=== PATIENT | male | born 1965 | race Hispanic/Latino ===

== ENCOUNTER 2018-03-25 08:08 | Emergency (ER) | payer BC ==
[2018-03-25] MEDS ORDERED: NA CHLORIDE 0.9% 1,000 ML ONE (08:45)
[2018-03-25] MEDS ORDERED: PANTOPRAZOLE 40 MG INJ ONE ×2 (08:45→11:50)
[2018-03-25 08:48] LABS: Protime INR 1.13
[2018-03-25 08:55] LABS: Absolute Lymphocytes (CBC) 0.6 K/uL (0.7-4.9); Absolute Monocytes 0.4 K/uL (0.1-1.3); Absolute Neutrophil 2.8 K/uL (1.8-8.0); Basophils % 1.2 % (0-1.3); Eosinophils % 2.3 % (0-4.4); Hematocrit 19.5 % (39.6-49.0); Lymphocytes % 15.5 % (15.3-44.8); MCH 14.9 pg (27.0-35.0); MCV 57.1 fL (80-100); MPV 9.4 fL (7.6-11.3); Monocytes % 10.3 % (3.3-12.3); RBC Red Blood Cell Count 3.41 M/uL (4.33-5.43)
[2018-03-25 09:25] LABS: ALT/SGPT 33 U/L (12-78); AST/SGOT 24 U/L (15-37); Albumin 4.2 g/dL (3.4-5.0); Alkaline Phosphatase 103 U/L (45-117); BUN Blood Urea Nitrogen 13 mg/dL (7-18); Bicarbonate 23 mmol/L (21-32); Bilirubin Direct 0.3 mg/dL (0-0.2); Bilirubin Total 0.8 mg/dL (0.2-1.0); Ferritin 1.8 ng/mL (26-388); Glucose Level 109 mg/dL (74-106); Lipase 160 U/L (73-393); Magnesium 2.2 mg/dL (1.8-2.4); NT PRO-BNP 231 pg/mL (<125); Potassium 4.2 mmol/L (3.5-5.1); Protein, Total 7.4 g/dL (6.4-8.2); Sodium Level 138 mmol/L (136-145); Transferrin 384 mg/dL (200-360); Troponin (Emerg Dept Use Only) < 0.02 ng/mL (0.0-0.045)
[2018-03-25 09:55] LABS: Anisocytosis 3+; Blood Morphology Comment NOTED (NOT SEEN); Hypochromasia 3+; Platelet Estimate ADEQ; Poikilocytosis 1+; Polychromasia 1+
[2018-03-25 09:56] LABS: Basophilic Stippling 1+; Elliptocytes 1+
[2018-03-25] MEDS ORDERED: NA CHLORIDE 0.9% 250 ML ONE ×2 (10:24→13:33)
[2018-03-25] MEDS ORDERED: DIPHENHYDRAMINE 25 MG TAB/CAP ONE (10:32)
[2018-03-25] MEDS ORDERED: ACETAMINOPHEN 325 MG TABLET ONE (10:32)
[2018-03-25] MEDS ORDERED: THIAMINE 200 MG/2 ML INJ ONE (11:50)
[2018-03-25] MEDS ORDERED: FOLIC ACID 5 MG/ML VIAL ONE (11:51)
--- NOTE | 2018-03-25 11:58 | ER ---
Nurse's Notes [facility] Name: Rhett Bourgeois Age: 52 yrs Sex: Male : 1965 Arrival Date: 03/25/2018 Time: 08:10 Bed 18 Private MD: Oscar Butt A Diagnosis: Anemia, unspecified;Epistaxis-history of;Weakness;Gastrointestinal hemorrhage, unspecified;Alcohol abuse Presentation: 03/25 08:18 Presenting complaint: Patient states: Saw Dr. Butt yesterday for fatigue, had routine ss labs obtained and was called this morning and told to come to ER for "low blood levels". Pt reports a history of chronic nose bleeds. Transition of care: patient was not received from another setting of care. Onset of symptoms is unknown. Risk Assessment: Do you want to hurt yourself or someone else? Patient reports no desire to harm self or others. Initial Sepsis Screen: Does the patient meet any 2 criteria? No. Patient's initial sepsis screen is negative. Does the patient have a suspected source of infection? No. Patient's initial sepsis screen is negative. Care prior to arrival: None. 08:18 Method Of Arrival: Ambulatory ss 08:18 Acuity: HUANG 3 ss Historical: - Allergies: 08:20 No Known Allergies; ss - Home Meds: 08:20 unknown anti viral [Active]; ss - PMHx: 08:20 chronic nose bleeds; ss - PSHx: 08:20 None; ss - Immunization history:: Adult Immunizations unknown. - Social history:: Smoking status: Patient/guardian denies using tobacco. - Ebola Screening: : Patient denies exposure to infectious person Patient denies travel to an Ebola-affected area in the 21 days before illness onset. - Family history:: not pertinent. Screenin:27 Abuse screen: Denies threats or abuse. Nutritional screening: No deficits noted. la1 Tuberculosis screening: No symptoms or risk factors identified. Fall Risk None identified. Assessment: 08:26 General: Appears in no apparent distress. Behavior is calm, cooperative. Pain: Denies la1 pain. Neuro: Level of Consciousness is awake, alert, obeys commands, Oriented to person, place, time, situation. Cardiovascular: Capillary refill < 3 seconds Patient's skin is warm and dry. Respiratory: Airway is patent Respiratory effort is even, unlabored, Respiratory pattern is regular, symmetrical, Breath sounds are clear bilaterally. GI: No signs and/or symptoms were reported involving the gastrointestinal system. : No signs and/or symptoms were reported regarding the genitourinary system. Derm: Skin is pale. 10:05 Reassessment: Patient appears in no apparent distress at this time. No changes from la1 previously documented assessment. Patient and/or family updated on plan of care and expected duration. Pain level reassessed. Patient is alert, oriented x 3, equal unlabored respirations, skin warm/dry/pink. 10:25 Reassessment: Patient and/or family updated on plan of care and expected duration. Pain aj1 level reassessed. General: Appears in no apparent distress. comfortable. Pain: Denies pain. Neuro: Level of Consciousness is awake, alert, obeys commands, Oriented to person, place, time, situation. Cardiovascular: Heart tones S1 S2 present Patient's skin is warm and dry. Respiratory: Airway is patent Respiratory effort is even, unlabored, Respiratory pattern is regular, symmetrical, Breath sounds are clear bilaterally. Denies shortness of breath. GI: No signs and/or symptoms were reported involving the gastrointestinal system. : No signs and/or symptoms were reported regarding the genitourinary system. EENT: Reports chronic nose bleeds. Derm: Skin is pale. Musculoskeletal: No signs and/or symptoms reported regarding the musculoskeletal system. Circulation, motion, and sensation intact. 10:35 Reassessment: Blood transfusion initiated. See transfusion record. aj1 11:35 Reassessment: Patient appears in no apparent distress at this time. No changes from aj1 previously documented assessment. Patient and/or family updated on plan of care and expected duration. Pain level reassessed. Patient is alert, oriented x 3, equal unlabored respirations, skin warm/dry/pink. 11:35 Cardiovascular: Heart tones S1 S2 present. Respiratory: Breath sounds are clear aj1 bilaterally. 12:35 Reassessment: Patient and/or family updated on plan of care and expected duration. Pain aj1 level reassessed. General: Appears in no apparent distress. comfortable, Behavior is calm, cooperative, appropriate for age. Pain: Denies pain. Neuro: Level of Consciousness is awake, alert, obeys commands. Cardiovascular: Heart tones S1 S2 present Patient's skin is warm and dry. Respiratory: Airway is patent Respiratory effort is even, unlabored, Respiratory pattern is regular, symmetrical, Breath sounds are clear bilaterally. Denies shortness of breath. Derm: Skin is pale. Musculoskeletal: Circulation, motion, and sensation intact. 13:00 Reassessment: report called to KEMAR Bell. 13:34 Reassessment: Patient appears in no apparent distress at this time. No changes from aj1 previously documented assessment. Patient and/or family updated on plan of care and expected duration. Pain level reassessed. Patient is alert, oriented x 3, equal unlabored respirations, skin warm/dry/pink. Respiratory: Breath sounds are clear bilaterally. Denies shortness of breath. 13:40 Reassessment: Blood transfusion initiated with EMS at bedside, Vital signs were [facility] rechecked 5 minutes after starting transfusion, and then care was transferred to EMS. Vital Signs: 08:20 BP 139 / 76; Pulse 79; Resp 16; Temp 98.2(TE); Pulse Ox 100% on R/A; Weight 65.77 kg; Height 5 ft. 4 in. (162.56 cm); Pain 0/10; 10:05 BP 129 / 72; Pulse 64; Resp 16; Pulse Ox 100% on R/A; la1 11:05 BP 125 / 78; Pulse 66; Resp 20; Temp 97.5; Pulse Ox 100% ; aj1 12:05 BP 117 / 64; Pulse 60; Resp 22; Pulse Ox 100% on R/A; aj1 13:00 BP 118 / 60; Pulse 60; Resp 22; Pulse Ox 100% ; aj1 13:45 BP 135 / 68; Pulse 60; Resp 20; Pulse Ox 100% on R/A; aj1 08:20 Body Mass Index 24.89 (65.77 kg, 162.56 cm) ED Course: 08:10 Patient arrived in ED. sb2 08:10 Oscar Butt MD is Private Physician. sb2 08:19 Triage completed. ss 08:20 Arm band placed on right wrist. ss 08:23 Melchor Mane MD is Attending Physician. [facility] 08:26 Kenyon Ingram, KEMAR is Primary Nurse. la1 08:27 No provider procedures requiring assistance completed. Inserted saline lock: 20 gauge la1 in left antecubital area, using aseptic technique. Blood collected. 08:28 Bed in low position. Call light in reach. Side rails up X 1. Pulse ox on. NIBP on. la1 08:56 X-ray completed. Portable x-ray completed in exam room. kp1 08:57 XRAY Chest (1 view) In Process Unspecified. EDMS 11:34 initiated a transfer with Perla at the [facility]. eb 11:43 Urine collected: urinal,clear. 3 11:52 connected the hospitalist from [facility] with ED doc for patient transfer eb consultation/. 12:00 Inserted saline lock: 22 gauge in right forearm, using aseptic technique. aj1 13:56 Patient transferred, IV remains in place. aj1 Administered Medications: 08:47 Drug: NS 0.9% 1000 ml Route: IV; Rate: 125 ml/hr; Site: left antecubital; la1 08:47 Drug: ProTONIX 40 mg Route: IVP; Site: left antecubital; la1 08:59 Follow up: Response: No adverse reaction la1 10:30 Drug: Tylenol 650 mg {Note: per transfusion orders.} Route: PO; aj1 13:57 Follow up: Response: No adverse reaction aj1 10:30 Drug: Benadryl 25 mg {Note: per transfusion orders.} Route: PO; aj1 13:57 Follow up: Response: No adverse reaction aj1 12:15 Drug: ProTONIX 40 mg Route: IVP; Site: right forearm; aj1 13:57 Follow up: Response: No adverse reaction aj1 12:15 Drug: Thiamine 100 mg Route: IV; Rate: bolus; Site: right antecubital; aj1 13:58 Follow up: IV Status: Completed infusion aj1 12:15 Drug: foLIC Acid 1 mg Route: IVPB; Site: right antecubital; aj1 13:58 Follow up: IV Status: Completed infusion aj1 12:47 Drug: ProTONIX 8 mg/hr Route: IV; Rate: 25 ml/hr; Site: right forearm; aj1 13:58 Follow up: IV Status: Infusion continued upon transfer aj1 Outcome: 11:58 ER care complete, transfer ordered by MD. gutierrez 13:59 Transferred by ground EMS to [facility], Transfer form completed. aj1 13:59 Condition: unchanged 13:59 Discharge instructions given to patient, Instructed on the need for transfer, Demonstrated understanding of instructions. 13:59 Patient left the ED. aj1 Signatures: Dispatcher [employer] EDCecy Flores RN RN aj1 Melchor Mane MD MD cha Smirch, Shelby, RN RN ss Attema, Lee, RN RN Graciela Murphy 1 Ethel Brooks 3 Concepción Pinto2 Yaquelin Quiñones
--- NOTE | 2018-03-25 11:58 | EDPHYS ---
Physician Documentation [facility] Name: Rhett Bourgeois Age: 52 yrs Sex: Male : 1965 Arrival Date: 03/25/2018 Time: 08:10 Bed 18 Private MD: Oscar Butt, A ED Physician Melchor Mane HPI: 03/25 11:36 This 52 yrs old Male presents to ER via Ambulatory with complaints of Abnormal matt Lab Results. 11:36 This 52 yrs old Male presents to ER via Ambulatory with complaints of Abnormal matt Lab Results. 11:36 This 52 yrs old Male presents to ER via Ambulatory with complaints of Abnormal matt Lab Results. 11:48 This 52 yrs old Male presents to ER via Ambulatory with complaints of Abnormal matt Lab Results. Historical: - Allergies: 08:20 No Known Allergies; ss - Home Meds: 08:20 unknown anti viral [Active]; ss - PMHx: 08:20 chronic nose bleeds; ss - PSHx: 08:20 None; ss - Immunization history:: Adult Immunizations unknown. - Social history:: Smoking status: Patient/guardian denies using tobacco. - Ebola Screening: : Patient denies exposure to infectious person Patient denies travel to an Ebola-affected area in the 21 days before illness onset. - Family history:: not pertinent. ROS: 11:48 Abdomen/GI: Negative for abdominal pain, nausea, vomiting, diarrhea, and constipation, matt Back: Negative for injury and pain, MS/Extremity: Negative for injury and deformity. 11:48 Constitutional: Positive for fatigue, malaise. 11:48 Eyes: Positive for 11:48 Cardiovascular: Positive for chest pain, palpitations. 11:48 Respiratory: Positive for dyspnea on exertion, shortness of breath. 11:48 Abdomen/GI: Negative for abdominal pain, black/tarry stool, rectal pain, rectal bleeding. 11:48 Skin: Positive for pallor. Exam: 11:48 Constitutional: This is a well developed, well nourished patient who is awake, alert, matt and in no acute distress. Head/Face: Normocephalic, atraumatic. Eyes: Pupils equal round and reactive to light, extra-ocular motions intact. Lids and lashes normal. Conjunctiva and sclera are non-icteric and not injected. Cornea within normal limits. Periorbital areas with no swelling, redness, or edema. Neck: Trachea midline, no thyromegaly or masses palpated, and no cervical lymphadenopathy. Supple, full range of motion without nuchal rigidity, or vertebral point tenderness. No Meningismus. Chest/axilla: Normal chest wall appearance and motion. Nontender with no deformity. No lesions are appreciated. Cardiovascular: Regular rate and rhythm with a normal S1 and S2. No gallops, murmurs, or rubs. Normal PMI, no JVD. No pulse deficits. Respiratory: Lungs have equal breath sounds bilaterally, clear to auscultation and percussion. No rales, rhonchi or wheezes noted. No increased work of breathing, no retractions or nasal flaring. Male : Normal genitalia with no discharge or lesions. MS/ Extremity: Pulses equal, no cyanosis. Neurovascular intact. Full, normal range of motion. Neuro: Awake and alert, GCS 15, oriented to person, place, time, and situation. Cranial nerves II-XII grossly intact. Motor strength 5/5 in all extremities. Sensory grossly intact. Cerebellar exam normal. Normal gait. 11:48 Eyes: Conjunctiva: pale. 11:48 Cardiovascular: Rate: normal, Rhythm: regular, Pulses: Pulses are 4+ in bilateral radial, brachial, femoral, popliteal, posterior tibial and and dorsalis pedis arteries.. 11:48 Abdomen/GI: Inspection: abdomen appears normal, Bowel sounds: normal, Palpation: abdomen is soft and non-tender, Rectal exam: Stool: guaiac positive, hemorrhoid(s), are not appreciated, mass, is not appreciated, swelling, is not appreciated, tenderness, is not appreciated, Liver: no appreciated palpable abnormalities, Hernia: not appreciated. Vital Signs: 08:20 BP 139 / 76; Pulse 79; Resp 16; Temp 98.2(TE); Pulse Ox 100% on R/A; Weight 65.77 kg; ss Height 5 ft. 4 in. (162.56 cm); Pain 0/10; 10:05 BP 129 / 72; Pulse 64; Resp 16; Pulse Ox 100% on R/A; la1 11:05 BP 125 / 78; Pulse 66; Resp 20; Temp 97.5; Pulse Ox 100% ; aj1 12:05 BP 117 / 64; Pulse 60; Resp 22; Pulse Ox 100% on R/A; [facility] 13:00 BP 118 / 60; Pulse 60; Resp 22; Pulse Ox 100% ; aj1 13:45 BP 135 / 68; Pulse 60; Resp 20; Pulse Ox 100% on R/A; aj1 08:20 Body Mass Index 24.89 (65.77 kg, 162.56 cm) ss MDM: 08:23 Patient medically screened. [facility] 11:52 Data reviewed: vital signs, nurses notes, lab test result(s), EKG, radiologic studies, matt plain films. 03/25 08:26 Order name: Basic Metabolic Panel; Complete Time: 11:34 [facility] 03/25 08:26 Order name: CBC with Diff; Complete Time: 11:34 [facility] 03/25 08:26 Order name: LFT's; Complete Time: 11:34 [facility] 03/25 08:26 Order name: Magnesium; Complete Time: 11:34 [facility] 03/25 08:26 Order name: NT PRO-BNP; Complete Time: 11:34 [facility] 03/25 08:26 Order name: PT-INR; Complete Time: 11:34 [facility] 03/25 08:26 Order name: Troponin (emerg Dept Use Only); Complete Time: 11:34 [facility] 03/25 08:26 Order name: Lipase; Complete Time: 11:34 [facility] 03/25 08:26 Order name: Retic Count; Complete Time: 11:34 [facility] 03/25 08:26 Order name: Vitamin B12; Complete Time: 11:34 [facility] 03/25 08:26 Order name: Folic Acid,Serum (folate); Complete Time: 11:34 [facility] 03/25 08:26 Order name: TIBC; Complete Time: 11:34 [facility] 03/25 08:26 Order name: Ferritin; Complete Time: 11:34 [facility] 03/25 08:26 Order name: XRAY Chest (1 view) [facility] 03/25 08:26 Order name: EKG; Complete Time: 08:27 [facility] 03/25 08:26 Order name: Cardiac monitoring; Complete Time: 08:28 [facility] 03/25 08:26 Order name: Type And Screen [facility] 03/25 08:57 Order name: Manual Differential; Complete Time: 11:34 [facility] 03/25 09:26 Order name: ABO/RH no charge; Complete Time: 11:34 [facility] 03/25 09:46 Order name: Packed RBC Leukored -1 EDMS 03/25 11:45 Order name: Urine Dipstick--Ancillary (enter results) eb 03/25 08:26 Order name: EKG - Nurse/Tech; Complete Time: 08:48 [facility] 03/25 08:26 Order name: IV Saline Lock; Complete Time: 08:28 [facility] 03/25 08:26 Order name: Labs collected and sent; Complete Time: 08:28 [facility] 03/25 08:26 Order name: O2 Per Protocol; Complete Time: 08:28 [facility] 03/25 08:26 Order name: O2 Sat Monitoring; Complete Time: 08:28 [facility] 03/25 09:17 Order name: Transfuse; Complete Time: 11:01 [facility] 03/25 11:34 Order name: IV Saline Lock - Large Bore; Complete Time: 12:46 [facility] Administered Medications: 08:47 Drug: NS 0.9% 1000 ml Route: IV; Rate: 125 ml/hr; Site: left antecubital; la1 08:47 Drug: ProTONIX 40 mg Route: IVP; Site: left antecubital; la1 08:59 Follow up: Response: No adverse reaction la1 10:30 Drug: Tylenol 650 mg {Note: per transfusion orders.} Route: PO; aj1 13:57 Follow up: Response: No adverse reaction aj1 10:30 Drug: Benadryl 25 mg {Note: per transfusion orders.} Route: PO; aj1 13:57 Follow up: Response: No adverse reaction aj1 12:15 Drug: ProTONIX 40 mg Route: IVP; Site: right forearm; aj1 13:57 Follow up: Response: No adverse reaction aj1 12:15 Drug: Thiamine 100 mg Route: IV; Rate: bolus; Site: right antecubital; aj1 13:58 Follow up: IV Status: Completed infusion aj1 12:15 Drug: foLIC Acid 1 mg Route: IVPB; Site: right antecubital; aj1 13:58 Follow up: IV Status: Completed infusion aj1 12:47 Drug: ProTONIX 8 mg/hr Route: IV; Rate: 25 ml/hr; Site: right forearm; aj1 13:58 Follow up: IV Status: Infusion continued upon transfer aj1 Disposition: 03/25/18 11:58 Transfer ordered to [facility]. Diagnosis are Anemia, unspecified, Epistaxis - history of, Weakness, Gastrointestinal hemorrhage, unspecified, Alcohol abuse. - Reason for transfer: Higher level of care. - Accepting physician is to [facility]. - Condition is Fair. - Problem is new. - Symptoms have improved. Signatures: Dispatcher [employer] [facility] Cecy Chapin RN RN aj1 Melchor Mane MD MD cha Smirch, Shelby, RN RN ss Kenyon Ingram RN RN la1 Corrections: (The following items were deleted from the chart) 08:27 08:27 FERRITIN+C.LAB.BRZ ordered. [facility] 13:59 11:58 03/25/2018 11:58 Transfer ordered to [facility]. Diagnosis is aj1 Anemia, unspecified; Epistaxis - history of; Weakness; Gastrointestinal hemorrhage, unspecified; Alcohol abuse. Reason for transfer: Higher level of care. Accepting physician is to [facility]. Condition is Fair. Problem is new. Symptoms have improved. matt
[2018-03-25 12:12] LABS: Urine Blood NEGATIVE (NEG); Urine Glucose NEGATIVE (NEG); Urine Protein NEGATIVE (NEG); Urine pH 5.5 (5.0-7.0)
[2018-03-25] MEDS ORDERED: PANTOPRAZOLE INJ 80 MG in NA CHLORIDE 0.9% 250 ML IV SCH (12:30)
--- NOTE | 2018-03-26 12:23 | RAD REPORT ---
EXAM DESCRIPTION: RAD - Chest Single View - 03/25/2018 11:28 pm CLINICAL HISTORY: Cough The final report was delayed due to PACs and/or Fluency technical problems that existed at the time of the study or during expected/usual dictation time period. COMPARISON: None. TECHNIQUE: AP portable chest image was obtained 0851 hours . FINDINGS: Lungs are clear. Heart and vasculature are normal. No measurable pleural effusion and no p neumothorax. No gross bony abnormality seen. No acute aortic findings suspected. IMPRESSION: No acute cardiopulmonary process.
--- NOTE | 2018-03-27 08:19 | EKG ---
Test Date: 2018-03-25 Test Time: 08:33:35 Director Strategy: LA MEASUREMENT RESULTS: Intervals: Rate: 64 AR: 130 QRSD: 94 QT: 408 QTc: 420 [place]: P: 18 AR: 130 QRS: 21 T: 23 INTERPRETIVE STATEMENTS: Normal sinus rhythm Normal ECG No previous ECG available for comparison Electronically Signed On 03-27-18 08:18:40 CDT by Quentin Damon
== END 2018-03-25 13:59 | disposition short-term general hospital (02) ==
LOC: ER 08:08
DX: K92.2 Gastrointestinal hemorrhage, unspecified (principal); D50.0 Iron deficiency anemia secondary to blood loss (chronic); R04.0 Epistaxis; R53.1 Weakness; F10.10 Alcohol abuse, uncomplicated
CPT/HCPCS: 36415; 71045; 80048; 80076; 81003; 82607; 82728; 82746; 83540; 83690; 83735; 83880; 84466; 84484; 85025; 85044; 85610; 86850; 86900; 86901; 93005; 99285; C9113; J3411; J7030; P9016

== ENCOUNTER 2018-06-30 13:23 | Observation (INO) | payer BC ==
[2018-06-30] MEDS ORDERED: INFLUENZA VACCINE (for 3y+) 0.5 ML DOSE IMVAC ONE (15:00)
[2018-06-30] MEDS ORDERED: ONDANSETRON 4 MG/2 ML VIAL IV PRN (15:00)
[2018-06-30] MEDS ORDERED: ONDANSETRON 4 MG (ODT) TAB PO PRN (15:00)
[2018-06-30] MEDS ORDERED: PNEUMOCOCCAL VACCINE 0.5 ML IMVAC ONE (15:00)
[2018-06-30] MEDS ORDERED: POLYETHYL GLY 3350 17 GM/DOSE PO PRN (15:00)
[2018-06-30] MEDS ORDERED: ACETAMINOPHEN 325 MG TABLET PO PRN (15:00)
[2018-06-30] MEDS ORDERED: DIPHENHYDRAMINE 25 MG TAB/CAP PO PRN (15:00)
[2018-06-30] MEDS ORDERED: LOPERAMIDE HCL 2 MG CAPSULE PO PRN (15:00)
[2018-06-30] MEDS ORDERED: NACHLORIDE 0.45% 1,000 ML IV SCH (15:00)
[2018-06-30 15:30] LABS: Absolute Lymphocytes (CBC) 0.6 K/uL (0.7-4.9); Absolute Monocytes 0.4 K/uL (0.1-1.3); Absolute Neutrophil 2.1 K/uL (1.8-8.0); Eosinophils % 2.3 % (0-4.4); Monocytes % 12.3 % (3.3-12.3); RBC Red Blood Cell Count 3.43 M/uL (4.33-5.43)
[2018-06-30 15:36] LABS: ALT/SGPT 28 U/L (12-78); AST/SGOT 12 U/L (15-37); Albumin 3.9 g/dL (3.4-5.0); Alkaline Phosphatase 83 U/L (45-117); BUN Blood Urea Nitrogen 13 mg/dL (7-18); Bicarbonate 27 mmol/L (21-32); Bilirubin Direct 0.2 mg/dL (0-0.2); Bilirubin Total 0.5 mg/dL (0.2-1.0); Ferritin 1.2 ng/mL (26-388); Glucose Level 111 mg/dL (74-106); Protein, Total 7.1 g/dL (6.4-8.2); Protime INR 1.11; Sodium Level 139 mmol/L (136-145)
[2018-06-30 16:26] LABS: Urine White Blood Cell Casts OK
[2018-06-30 16:27] LABS: Anisocytosis 3+; Blood Morphology Comment NOTED (NOT SEEN); Elliptocytes 3+; Hypochromasia 2+; Platelet Estimate ADEQ; Polychromasia 1+
--- NOTE | 2018-06-30 18:52 | RAD REPORT ---
EXAM DESCRIPTION: Sheldon Dotson And Moreno (2 Views)06/30/2018 6:35 pm CLINICAL HISTORY: Breast mass/preop exam COMPARISON: March 2018 FINDINGS: The lungs appear clear of acute infiltrate. The heart is normal size IMPRESSION: No acute abnormalities displayed
[2018-06-30] MEDS ORDERED: NA CHLORIDE 0.9% 250 ML ONE (19:55)
--- NOTE | 2018-07-01 08:30 | EKG ---
Test Date: 2018-06-30 Test Time: 15:04:43 Regional Truck Driver: GILMA MEASUREMENT RESULTS: Intervals: Rate: 61 WV: 146 QRSD: 96 QT: 426 QTc: 428 [place]: P: 47 WV: 146 QRS: 51 T: 43 INTERPRETIVE STATEMENTS: Sinus rhythm with marked sinus arrhythmia Otherwise normal ECG Compared to ECG 03/25/2018 08:33:35 No significant changes Electronically Signed On 07-01-18 08:30:00 ENGRAVER RUBBER by Quentin Damon
--- NOTE | 2018-07-01 10:00 | P.DS ---
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 HE HAS THEM ON TONGUE ALSO IN ADDITION TO NOSE AND GI TRACT. I WILL CHECK HIS HG EVERY MONTH OR SO AND WILL HAVE TO TRANSFUSE. THERE IS SOME RESEARCH GOING ON IN [place] FOR EPISTAXIS FOR THIS PARTICULAR ISSUE AND I WILL REFER HIM THERE IF I CAN. Vital Signs/Physical Exam: Temp Pulse Resp BP Pulse Ox 96.9 F 56 16 105/56 L 100 07/01/18 04:00 07/01/18 04:00 07/01/18 04:00 07/01/18 04:00 07/01/18 04:00 Laboratory Data at Discharge: WBC 3.2 K/uL (4.3-10.9) L 06/30/18 14:55 Hgb 6.4 g/dL (13.6-17.9) L* 06/30/18 14:55 Hct 21.0 % (39.6-49.0) L 06/30/18 14:55 Plt Count 270 K/uL (152-406) 06/30/18 14:55 PT 13.1 SECONDS (9.5-12.5) H 06/30/18 14:55 INR 1.11 06/30/18 14:55 APTT 33.5 SECONDS (24.3-36.9) 06/30/18 14:55 Sodium 139 mmol/L (136-145) 06/30/18 14:55 Potassium 4.0 mmol/L (3.5-5.1) 06/30/18 14:55 BUN 13 mg/dL (7-18) 06/30/18 14:55 Creatinine 0.71 mg/dL (0.55-1.3) 06/30/18 14:55 Glucose 111 mg/dL (74-106) H 06/30/18 14:55 Total Bilirubin 0.5 mg/dL (0.2-1.0) 06/30/18 14:55 AST 12 U/L (15-37) L 06/30/18 14:55 ALT 28 U/L (12-78) 06/30/18 14:55 Alkaline Phosphatase 83 U/L (45-117) 06/30/18 14:55 Home Medications: NK [No Home Meds] 06/30/18 Diet: Regular
[2018-07-01 11:41] LABS: Absolute Lymphocytes (CBC) 0.8 K/uL (0.7-4.9); Absolute Monocytes 0.5 K/uL (0.1-1.3); Absolute Neutrophil 2.8 K/uL (1.8-8.0); Basophils % 0.9 % (0-1.3); Eosinophils % 2.5 % (0-4.4); Lymphocytes % 19.5 % (15.3-44.8); Monocytes % 12.5 % (3.3-12.3)
[2018-07-01 11:42] LABS: BUN Blood Urea Nitrogen 10 mg/dL (7-18); Bicarbonate 26 mmol/L (21-32); Glucose Level 93 mg/dL (74-106); Magnesium 2.3 mg/dL (1.8-2.4); Potassium 4.2 mmol/L (3.5-5.1); Sodium Level 141 mmol/L (136-145)
[2018-07-01 13:01] LABS: MPV 9.2 fL (7.6-11.3)
[2018-07-01 13:02] LABS: Platelet Estimate ADEQ; Urine White Blood Cell Casts OK
[2018-07-01 13:03] LABS: Anisocytosis 3+; Blood Morphology Comment NOTED (NOT SEEN); Hypochromasia 1+; Ovalocytes 2+; Polychromasia 1+; Teardrop Cell 1+
== END 2018-07-01 12:40 | disposition home or self-care (01) ==
LOC: 2ND 13:53
PROVIDERS: ADMIT Internal Medicine; ATTEND Internal Medicine
PROC: 30233N1 Transfusion of Nonautologous Red Blood Cells into Peripheral Vein, Percutaneous Approach (ICD-10-PCS; principal; 2018-06-30)
DX: D64.9 Anemia, unspecified (principal); I78.0 Hereditary hemorrhagic telangiectasia
CPT/HCPCS: 36415; 36430; 71046; 80048; 80076; 82728; 83735; 85025; 85610; 85730; 86850; 86900; 86901; 87040; 93005; G0378; P9016

== ENCOUNTER 2018-08-18 09:29 | Observation (INO) | payer BC ==
[2018-08-18 10:54] LABS: Absolute Lymphocytes (CBC) 0.4 K/uL (0.7-4.9); Absolute Monocytes 0.4 K/uL (0.1-1.3); Absolute Neutrophil 3.2 K/uL (1.8-8.0); Basophils % 0.5 % (0-1.3); Eosinophils % 0.4 % (0-4.4); Hematocrit 20.8 % (39.6-49.0); Lymphocytes % 10.1 % (15.3-44.8); MPV 8.7 fL (7.6-11.3); Monocytes % 9.8 % (3.3-12.3); RBC Red Blood Cell Count 3.65 M/uL (4.33-5.43)
[2018-08-18] MEDS ORDERED: ONDANSETRON 4 MG (ODT) TAB PO PRN (11:00)
[2018-08-18] MEDS ORDERED: NA CHLORIDE 0.9% 250 ML IV SCH (11:00)
[2018-08-18] MEDS ORDERED: DIPHENHYDRAMINE 25 MG TAB/CAP PO PRN (11:00)
[2018-08-18] MEDS ORDERED: NACHLORIDE 0.45% 1,000 ML IV SCH (11:00)
[2018-08-18] MEDS ORDERED: LOPERAMIDE HCL 2 MG CAPSULE PO PRN (11:00)
[2018-08-18] MEDS ORDERED: ACETAMINOPHEN 325 MG TABLET PO PRN (11:00)
[2018-08-18] MEDS ORDERED: ONDANSETRON 4 MG/2 ML VIAL IV PRN (11:00)
[2018-08-18] MEDS ORDERED: POLYETHYL GLY 3350 17 GM/DOSE PO PRN (11:00)
[2018-08-18 11:01] LABS: Protime INR 1.05
[2018-08-18 11:12] LABS: ALT/SGPT 25 U/L (12-78); AST/SGOT 12 U/L (15-37); Albumin 4.3 g/dL (3.4-5.0); Alkaline Phosphatase 68 U/L (45-117); BUN Blood Urea Nitrogen 12 mg/dL (7-18); Bicarbonate 26 mmol/L (21-32); Bilirubin Direct 0.3 mg/dL (0-0.2); Bilirubin Total 0.9 mg/dL (0.2-1.0); Glucose Level 105 mg/dL (74-106); Magnesium 2.2 mg/dL (1.8-2.4); Potassium 4.3 mmol/L (3.5-5.1); Protein, Total 7.4 g/dL (6.4-8.2); Sodium Level 140 mmol/L (136-145)
[2018-08-18 11:14] VITALS: BMI 27.4
[2018-08-18 11:47] LABS: Platelet Estimate ADEQ; Urine White Blood Cell Casts DIFF
[2018-08-18 11:48] LABS: Anisocytosis 3+; Blood Morphology Comment NOTED (NOT SEEN); Hypochromasia 3+; Ovalocytes 3+; Platelets, Giant FEW; Polychromasia 2+; Teardrop Cell 3+
[2018-08-18] MEDS ORDERED: NA CHLORIDE 0.9% 500 ML ONE (13:24)
[2018-08-18] MEDS ORDERED: NA CHLORIDE 0.9% 100 ML ONE (17:05)
[2018-08-18 17:33] LABS: Urine Appearance CLEAR; Urine Bilirubin NEGATIVE (NEG); Urine Blood NEGATIVE (NEG); Urine Color YELLOW; Urine Glucose NEGATIVE (NEG); Urine Protein NEGATIVE (NEG); Urine Specific Gravity 1.015 (1.005-1.030); Urine pH 7.5 (5.0-7.0)
[2018-08-18 17:38] LABS: Urine Microscopic Reflex NO UMIC
[2018-08-18 17:58] VITALS: O2SAT 100
[2018-08-18] MEDS ORDERED: NA CHLORIDE 0.9% 250 ML ONE (22:59)
[2018-08-19] MEDS ORDERED: NA CHLORIDE 0.9% 100 ML ONE (03:16)
[2018-08-19 06:29] LABS: BUN Blood Urea Nitrogen 13 mg/dL (7-18); Bicarbonate 25 mmol/L (21-32); Glucose Level 101 mg/dL (74-106); Magnesium 2.3 mg/dL (1.8-2.4); Potassium 4.2 mmol/L (3.5-5.1); Sodium Level 142 mmol/L (136-145)
[2018-08-19 07:29] LABS: Absolute Lymphocytes (CBC) 0.8 K/uL (0.7-4.9); Absolute Monocytes 0.5 K/uL (0.1-1.3); Absolute Neutrophil 3.2 K/uL (1.8-8.0); Basophils % 0.9 % (0-1.3); Eosinophils % 2.2 % (0-4.4); Hematocrit 30.9 % (39.6-49.0); Lymphocytes % 18.2 % (15.3-44.8); MPV 9.2 fL (7.6-11.3); Monocytes % 10.4 % (3.3-12.3); RBC Red Blood Cell Count 4.66 M/uL (4.33-5.43)
[2018-08-19 08:27] LABS: Hematocrit 31.5 % (39.6-49.0)
[2018-08-19 10:57] VITALS: BP 127/64; TEMP 97.1
--- NOTE | 2018-08-19 11:35 | P.DS ---
Admission Date: 08/18/18 Discharge Date: 08/19/18 Disposition: ROUTINE DISCHARGE Discharge Condition: [facility] Hospital Course: STABLE FOR DC HG IS 9.8 HE WILL CALL RESEARCH DEPT IN [place] LIKE I ADVISED. Vital Signs/Physical Exam: Temp Pulse Resp BP Pulse Ox 97.1 F 62 18 127/64 100 08/19/18 08:00 08/19/18 08:00 08/19/18 08:00 08/19/18 08:00 08/19/18 08:00 Laboratory Data at Discharge: WBC 4.6 K/uL (4.3-10.9) 08/19/18 05:51 Hgb 9.8 g/dL (13.6-17.9) L 08/19/18 07:40 Hct 31.5 % (39.6-49.0) L 08/19/18 07:40 Plt Count 162 K/uL (152-406) D 08/19/18 05:51 PT 12.4 SECONDS (9.5-12.5) 08/18/18 10:45 INR 1.05 08/18/18 10:45 APTT 32.9 SECONDS (24.3-36.9) 08/18/18 10:45 Sodium 142 mmol/L (136-145) 08/19/18 05:51 Potassium 4.2 mmol/L (3.5-5.1) 08/19/18 05:51 BUN 13 mg/dL (7-18) 08/19/18 05:51 Creatinine 0.75 mg/dL (0.55-1.3) 08/19/18 05:51 Glucose 101 mg/dL (74-106) 08/19/18 05:51 Magnesium 2.3 mg/dL (1.8-2.4) 08/19/18 05:51 Total Bilirubin 0.9 mg/dL (0.2-1.0) 08/18/18 10:42 AST 12 U/L (15-37) L 08/18/18 10:42 ALT 25 U/L (12-78) 08/18/18 10:42 Alkaline Phosphatase 68 U/L (45-117) 08/18/18 10:42 Home Medications: NK [No Home Meds] 06/30/18
[2018-08-19 13:01] LABS: Anisocytosis 3+; Blood Morphology Comment NOTED (NOT SEEN); Elliptocytes 1+; Hypochromasia 2+; Platelet Estimate ADEQ; Poikilocytosis 1+; Polychromasia 2+
== END 2018-08-19 12:08 | disposition home or self-care (01) ==
LOC: 4TH 09:43
PROVIDERS: ADMIT Internal Medicine; ATTEND Internal Medicine
PROC: 30233N1 Transfusion of Nonautologous Red Blood Cells into Peripheral Vein, Percutaneous Approach (ICD-10-PCS; principal; 2018-08-18)
DX: D64.9 Anemia, unspecified (principal); I78.0 Hereditary hemorrhagic telangiectasia
CPT/HCPCS: 36415; 80048; 80076; 81003; 83735; 85014; 85018; 85025; 85610; 85730; 86850; 86900; 86901; G0378; P9016

== ENCOUNTER 2018-10-11 20:56 | Observation (INO) | payer BC ==
[2018-10-11 21:52] VITALS: BMI 25.8
[2018-10-11 22:26] LABS: Absolute Lymphocytes (CBC) 0.9 K/uL (0.7-4.9); Absolute Monocytes 0.4 K/uL (0.1-1.3); Absolute Neutrophil 1.8 K/uL (1.8-8.0); Basophils % 1.1 % (0-1.3); Eosinophils % 1.7 % (0-4.4); Hematocrit 22.5 % (39.6-49.0); Lymphocytes % 28.1 % (15.3-44.8); MPV 8.7 fL (7.6-11.3); Monocytes % 12.5 % (3.3-12.3); RBC Red Blood Cell Count 3.71 M/uL (4.33-5.43)
[2018-10-11 22:41] LABS: BUN Blood Urea Nitrogen 15 mg/dL (7-18); Bicarbonate 27 mmol/L (21-32); Glucose Level 89 mg/dL (74-106); Potassium 3.8 mmol/L (3.5-5.1); Sodium Level 141 mmol/L (136-145)
[2018-10-11] MEDS ORDERED: DIPHENHYDRAMINE 25 MG TAB/CAP PO PRN (22:45)
[2018-10-11] MEDS ORDERED: POLYETHYL GLY 3350 17 GM/DOSE PO PRN (22:45)
[2018-10-11] MEDS ORDERED: LOPERAMIDE HCL 2 MG CAPSULE PO PRN (22:45)
[2018-10-11] MEDS ORDERED: ACETAMINOPHEN 325 MG TABLET PO PRN (22:45)
[2018-10-11] MEDS ORDERED: ONDANSETRON 4 MG/2 ML VIAL IV PRN (22:45)
[2018-10-11] MEDS ORDERED: ONDANSETRON 4 MG (ODT) TAB PO PRN (22:57)
[2018-10-11] MEDS ORDERED: NACHLORIDE 0.45% 1,000 ML IV SCH (23:00)
[2018-10-11 23:23] LABS: Blood Morphology Comment NOTED (NOT SEEN); Platelet Estimate ADEQ; Urine White Blood Cell Casts OK
[2018-10-11 23:24] LABS: Anisocytosis 3+; Hypochromasia 2+; Teardrop Cell 1+
[2018-10-12] MEDS ORDERED: NA CHLORIDE 0.9% 250 ML ONE ×2 (00:24→09:38)
--- NOTE | 2018-10-12 08:18 | EKG ---
Test Date: 2018-10-11 Test Time: 22:27:14 Radiation Engineer: BRIGITTE MEASUREMENT RESULTS: Intervals: Rate: 55 DE: 164 QRSD: 96 QT: 432 QTc: 413 [place]: P: 42 DE: 164 QRS: 57 T: 50 INTERPRETIVE STATEMENTS: Sinus bradycardia Otherwise normal ECG Compared to ECG 06/30/2018 15:04:43 Sinus rhythm no longer present Sinus arrhythmia no longer present Electronically Signed On 10-12-18 07:50:32 CDT by Quentin Damon
--- NOTE | 2018-10-12 08:29 | RAD REPORT ---
EXAM DESCRIPTION: RAD - Chest Pa And Lat (2 Views) - 10/11/2018 9:52 pm CLINICAL HISTORY: Severe Anemia, HHT Chest pain. COMPARISON: Chest Pa And Lat (2 Views) dated 06/30/2018; Chest Single View dated 03/25/2018 FINDINGS: The lungs are clear. The heart is normal in size. No displaced fractures. IMPRESSION: No acute or concerning finding suspected.
--- NOTE | 2018-10-12 10:22 | RAD REPORT ---
EXAM DESCRIPTION: US - Abdomen Exam Complete - 10/12/2018 9:18 am CLINICAL HISTORY: Abdominal pain. Severe Anemia, HHT COMPARISON: No comparisons FINDINGS: The liver appears prominent in size and mildly heterogenous in echotexture. No focal liver lesions or intrahepatic biliary dilatation is seen. The gallbladder demonstrates no gallstones, pericholecystic fluid or gallbladder wall thickening. Co mmon bile duct is normal in caliber measuring 5 millimeters. Both kidneys are normal in size, shape and echotexture. No hydronephrosis, focal lesion of concern or perinephric fluid. The spleen is enlarged measuring 14 cm. The pancreas and aorta are obscured by bowel gas. The visualized aspects of the IVC are grossly normal. IMPRESSION: Hepatosplenomegaly is identified.
[2018-10-12 15:36] VITALS: O2SAT 98
[2018-10-12 16:39] LABS: BUN Blood Urea Nitrogen 11 mg/dL (7-18); Bicarbonate 25 mmol/L (21-32); Glucose Level 86 mg/dL (74-106); Magnesium 2.4 mg/dL (1.8-2.4); Sodium Level 141 mmol/L (136-145)
[2018-10-12 16:44] LABS: Absolute Lymphocytes (CBC) 0.9 K/uL (0.7-4.9); Absolute Monocytes 0.5 K/uL (0.1-1.3); Basophils % 0.8 % (0-1.3); Eosinophils % 1.8 % (0-4.4); Hematocrit 32.9 % (39.6-49.0); Lymphocytes % 19.4 % (15.3-44.8); Monocytes % 11.1 % (3.3-12.3); RBC Red Blood Cell Count 4.95 M/uL (4.33-5.43)
--- NOTE | 2018-10-12 17:39 | P.DS ---
Admission Date: 10/11/18 Discharge Date: 10/12/18 Disposition: ROUTINE DISCHARGE Discharge Condition: FAIR Hospital Course: MR. BARKER HAS OSW SYNDROME AND BLEEDS OFF AND ON. HE HAS HG DOWN TO 6.4. AFTER 3 UNITS HE IS UP TO 9.9 GM. HE WILL CALL [facility] [place]. HE HAS THE NUMBER. Vital Signs/Physical Exam: Temp Pulse Resp BP Pulse Ox 97.2 F 56 18 127/69 100 10/12/18 12:00 10/12/18 12:00 10/12/18 12:00 10/12/18 12:00 10/12/18 12:00 Laboratory Data at Discharge: WBC 4.5 K/uL (4.3-10.9) D 10/12/18 16:10 Hgb 9.9 g/dL (13.6-17.9) L D 10/12/18 16:10 Hct 32.9 % (39.6-49.0) L D 10/12/18 16:10 Plt Count [employer] 10/12/18 16:10 Sodium 141 mmol/L (136-145) 10/12/18 16:10 Potassium 4.0 mmol/L (3.5-5.1) 10/12/18 16:10 BUN 11 mg/dL (7-18) 10/12/18 16:10 Creatinine 0.70 mg/dL (0.55-1.3) 10/12/18 16:10 Glucose 86 mg/dL (74-106) 10/12/18 16:10 Magnesium 2.4 mg/dL (1.8-2.4) 10/12/18 16:10 Home Medications: NK [No Home Meds] 10/11/18
[2018-10-12 18:14] VITALS: BP 116/61; TEMP 97.8
== END 2018-10-12 18:18 | disposition home or self-care (01) ==
LOC: 2ND 20:56
PROVIDERS: ADMIT Internal Medicine; ATTEND Internal Medicine
PROC: 30233N1 Transfusion of Nonautologous Red Blood Cells into Peripheral Vein, Percutaneous Approach (ICD-10-PCS; principal; 2018-10-11)
DX: D64.9 Anemia, unspecified (principal); I78.0 Hereditary hemorrhagic telangiectasia
CPT/HCPCS: 36415; 36430; 71046; 76700; 80048; 83735; 85025; 86850; 86900; 86901; 93005; G0378; P9016

== ENCOUNTER 2018-12-07 17:57 | Observation (INO) | payer BC ==
[2018-12-07 18:20] VITALS: BMI 26.6
[2018-12-07 18:55] LABS: Absolute Lymphocytes (CBC) 0.7 K/uL (0.7-4.9); Absolute Monocytes 0.4 K/uL (0.1-1.3); Absolute Neutrophil 2.5 K/uL (1.8-8.0); Eosinophils % 1.9 % (0-4.4); Lymphocytes % 18.8 % (15.3-44.8); MPV 9.7 fL (7.6-11.3); Monocytes % 11.1 % (3.3-12.3)
[2018-12-07 19:03] LABS: Hematocrit 16.3 % (39.6-49.0)
[2018-12-07 19:12] LABS: BUN Blood Urea Nitrogen 11 mg/dL (7-18); Bicarbonate 24 mmol/L (21-32); Glucose Level 100 mg/dL (74-106); Potassium 3.8 mmol/L (3.5-5.1); Sodium Level 138 mmol/L (136-145)
[2018-12-07] MEDS ORDERED: ONDANSETRON 4 MG (ODT) TAB PO PRN (19:53)
[2018-12-07] MEDS ORDERED: DIPHENHYDRAMINE 25 MG TAB/CAP PO PRN (19:53)
[2018-12-07] MEDS ORDERED: POLYETHYL GLY 3350 17 GM/DOSE PO PRN (19:53)
[2018-12-07] MEDS ORDERED: ONDANSETRON HCL 40 MG/20 ML VIAL IV PRN (19:53)
[2018-12-07] MEDS ORDERED: ACETAMINOPHEN 325 MG TABLET PO PRN (19:53)
[2018-12-07] MEDS ORDERED: LOPERAMIDE HCL 2 MG CAPSULE PO PRN (19:53)
[2018-12-07] MEDS ORDERED: NACHLORIDE 0.45% 1,000 ML IV SCH (20:00)
[2018-12-07] MEDS ORDERED: NA CHLORIDE 0.9% 250 ML ONE (22:15)
[2018-12-07 22:21] LABS: Urine Appearance CLEAR; Urine Bilirubin NEGATIVE (NEG); Urine Blood NEGATIVE (NEG); Urine Color YELLOW; Urine Glucose NEGATIVE (NEG); Urine Protein NEGATIVE (NEG)
[2018-12-07 22:24] LABS: Urine Microscopic Reflex NO UMIC
[2018-12-08] MEDS ORDERED: NA CHLORIDE 0.9% 250 ML ONE ×3 (01:19→09:56)
[2018-12-08 05:35] LABS: Absolute Lymphocytes (CBC) 0.6 K/uL (0.7-4.9); Absolute Monocytes 0.3 K/uL (0.1-1.3); Absolute Neutrophil 2.3 K/uL (1.8-8.0); Basophils % 1.3 % (0-1.3); Eosinophils % 2.4 % (0-4.4); Hematocrit 22.9 % (39.6-49.0); MPV 9.2 fL (7.6-11.3); Monocytes % 10.2 % (3.3-12.3); RBC Red Blood Cell Count 3.64 M/uL (4.33-5.43)
[2018-12-08 05:48] LABS: BUN Blood Urea Nitrogen 9 mg/dL (7-18); Bicarbonate 25 mmol/L (21-32); Glucose Level 95 mg/dL (74-106); Magnesium 2.3 mg/dL (1.8-2.4); Potassium 4.3 mmol/L (3.5-5.1); Sodium Level 142 mmol/L (136-145)
[2018-12-08 06:40] LABS: Anisocytosis 3+; Blood Morphology Comment NOTED (NOT SEEN); Hypochromasia 2+; Platelet Estimate ADEQ; Poikilocytosis 2+; Urine White Blood Cell Casts OK
--- NOTE | 2018-12-08 15:11 | P.DS ---
Admission Date: 12/07/18 Discharge Date: 12/08/18 Disposition: ROUTINE DISCHARGE Discharge Condition: FAIR Hospital Course: LESLEY IS DOING GOOD. HE STILL BLEEDS DAILY FROM NOSE. HE HAS HHT SYNDROME. LIKE ADVISED HE IS IN CONTACT WITH GROUP IN [place] FOR PROTOCOLS AND TREATMENT AND WILL BE GOING THERE SOON. Vital Signs/Physical Exam: Temp Pulse Resp BP Pulse Ox 97.4 F 54 16 107/57 L 100 12/08/18 12:00 12/08/18 12:00 12/08/18 12:00 12/08/18 12:00 12/08/18 12:00 Laboratory Data at Discharge: WBC 3.3 K/uL (4.3-10.9) L 12/08/18 05:07 Hgb 7.1 g/dL (13.6-17.9) L* D 12/08/18 05:07 Hct 22.9 % (39.6-49.0) L D 12/08/18 05:07 Plt Count 175 K/uL (152-406) 12/08/18 05:07 Sodium 142 mmol/L (136-145) 12/08/18 05:07 Potassium 4.3 mmol/L (3.5-5.1) 12/08/18 05:07 BUN 9 mg/dL (7-18) 12/08/18 05:07 Creatinine 0.62 mg/dL (0.55-1.3) 12/08/18 05:07 Glucose 95 mg/dL (74-106) 12/08/18 05:07 Magnesium 2.3 mg/dL (1.8-2.4) 12/08/18 05:07 Home Medications: NK [No Home Meds] 10/11/18 Diet: Regular
[2018-12-08 15:48] LABS: Hematocrit 28.2 % (39.6-49.0)
[2018-12-08 16:17] VITALS: O2SAT 99
[2018-12-08 16:52] VITALS: BP 121/59; TEMP 98.4
== END 2018-12-08 17:49 | disposition home or self-care (01) ==
LOC: 2ND 17:57
PROVIDERS: ADMIT Internal Medicine; ATTEND Internal Medicine
DX: I78.0 Hereditary hemorrhagic telangiectasia (principal); D64.9 Anemia, unspecified
CPT/HCPCS: 36415; 36430; 80048; 81003; 83735; 85014; 85018; 85025; 86850; 86900; 86901; G0378; P9016

== ENCOUNTER 2019-01-18 18:49 | Observation (INO) | payer BC ==
[2019-01-18 19:25] VITALS: BMI 26.4
[2019-01-18] MEDS ORDERED: POLYETHYL GLY 3350 17 GM/DOSE PO PRN (19:43)
[2019-01-18] MEDS ORDERED: LOPERAMIDE HCL 2 MG CAPSULE PO PRN (19:43)
[2019-01-18] MEDS ORDERED: DIPHENHYDRAMINE 25 MG TAB/CAP PO PRN (19:43)
[2019-01-18] MEDS ORDERED: ACETAMINOPHEN 325 MG TABLET PO PRN (19:43)
[2019-01-18] MEDS ORDERED: ONDANSETRON 4 MG/2 ML VIAL IV PRN (19:48)
[2019-01-18] MEDS ORDERED: ONDANSETRON HCL 40 MG/20 ML VIAL IV PRN (19:48)
[2019-01-18] MEDS ORDERED: NACHLORIDE 0.45% 1,000 ML IV SCH (20:00)
[2019-01-18 20:07] VITALS: O2SAT 100
[2019-01-18] MEDS ORDERED: NA CHLORIDE 0.9% 500 ML ONE (21:54)
[2019-01-19] MEDS ORDERED: NA CHLORIDE 0.9% 250 ML ONE ×2 (08:08→13:20)
--- NOTE | 2019-01-19 14:30 | P.SSS ---
Patient History Date of Service: 01/19/19 Reason for admission: FATIGUE, DYSPNEA History of Present Illness: MR. BARKER IS A PATIENT WITH HHT AND BLEEDS EVERY DAY THROUGH NOSE. HE HAS BEEN DYSPNEIC AND FATIGUED LATELY. HE HAD HG DONE YESTERDAY THAT WAS DOWN TO 5.8 GM. HE HAS BEEN GIVEN FOUR UNITS OF BLOOD AND ONCE HG IS HIGH ENOUGH HE WILL BE SENT HOME. HE WAS TO GO TO [facility] FOR NEW THERAPY FOR HHT BUT HAD TO CANCEL APT TWICE. HE WILL CALL THEM TODAY. Allergies No Known Allergies Allergy (Verified 10/11/18 21:43) Home Medications: NK [No Home Meds] 10/11/18 - Past Medical/Surgical History Has patient received pneumonia vaccine in the past: No Diabetic: No -: Osler-Nunez Rendu Syndrome (hht) -: egd x2 -: colonoscopy - Family History Father -: Heart disease, Cancer Mother -: Hypertension - Social History Smoking Status: Never smoker Alcohol use: Yes CD- Drugs: No Caffeine use: Yes Place of Residence: Home Review of Systems 10-point ROS is otherwise unremarkable General: Weakness, Malaise Respiratory: Shortness of Breath Physical Examination - Vital Signs Temperature: 97.5 F Blood Pressure: 123/73 Pulse: 61 Respirations: 17 Pulse Ox (%): 100 - Physical Exam General: Mild distress HEENT: Atraumatic, PERRLA, Mucous membr. moist/pink, EOMI, Sclerae nonicteric Neck: Supple, 2+ carotid pulse no bruit, No LAD, Without JVD or thyroid abnormality Respiratory: Clear to auscultation bilaterally, Normal air movement Cardiovascular: Regular rate/rhythm, Normal S1 S2 Gastrointestinal: Normal bowel sounds, No tenderness Musculoskeletal: No tenderness Integumentary: No rashes Neurological: Normal gait, Normal speech, Normal strength at 5/5 x4 extr, Normal tone, Normal affect Lymphatics: No axilla or inguinal lymphadenopathy - Diagnosis (Problem(s)) (1) HHT (hereditary hemorrhagic telangiectasia) Current Visit: Yes Status: Acute Plan: HE HAS MULTIPLE OPEN SURFACED BLOOD VESSELS IN HIS MM. HE HAS PLAN TO GO TO [facility] FOR INVESTIGATIONAL THERAPY FOR HHT OF NOSE TO PREVENT EPISTAXIS. I HAD HIM APPLY TO THIS FACILITY. (2) Severe anemia Onset Date: 08/21/18 Current Visit: No Status: Chronic Plan: HG WILL BE REDONE AFTER BLOOD TRANSFUSION. HE IS STABLE TO GO HOME. - Disposition Disposition: ROUTINE DISCHARGE Condition: FAIR
[2019-01-19 17:10] VITALS: BP 128/63; TEMP 97.8
[2019-01-19 19:23] LABS: Basophils % 0.9 % (0-1.3); Eosinophils % 2.5 % (0-4.4); Hematocrit 32.5 % (39.6-49.0); Lymphocytes % 19.2 % (15.3-44.8); MPV 8.8 fL (7.6-11.3); Monocytes % 10.4 % (3.3-12.3); RBC Red Blood Cell Count 4.88 M/uL (4.33-5.43)
[2019-01-19 19:40] LABS: BUN Blood Urea Nitrogen 13 mg/dL (7-18); Bicarbonate 25 mmol/L (21-32); Glucose Level 90 mg/dL (74-106); Magnesium 2.3 mg/dL (1.8-2.4); Potassium 4.4 mmol/L (3.5-5.1); Sodium Level 142 mmol/L (136-145)
[2019-01-19 23:26] LABS: Blood Morphology Comment NOTED (NOT SEEN)
[2019-01-19 23:27] LABS: Platelet Estimate DECR
== END 2019-01-19 20:35 | disposition home or self-care (01) ==
LOC: 2ND 18:49
PROVIDERS: ADMIT Internal Medicine; ATTEND Internal Medicine
DX: I78.0 Hereditary hemorrhagic telangiectasia (principal); D50.0 Iron deficiency anemia secondary to blood loss (chronic)
CPT/HCPCS: 36415; 36430; 80048; 83735; 85025; 86850; 86900; 86901; G0378; P9016

== ENCOUNTER 2019-03-23 14:21 | Observation (INO) | payer BC ==
--- OUTSIDE RECORDS SUMMARY | 2019-03-23 14:39 | XMS REPORT ---
:1965 Author Organization [facility] Address [address] [place] [address] Care Team Providers Name Role Phone CHRIS ADAMS Unavailable Unavailable Problems This patient has no known problems. Allergies, Adverse Reactions, Alerts This patient has no known allergies or adverse reactions. Medications This patient has no known medications. Results Test Description Test Time Test Comments Text Results Atomic Results Result Comments HEMOGLOBIN A1C 2018-03-26 12:20:00 Test Item Value Reference Range Comments HEMOGLOBIN A1C (BEAKER) (test sxui=468) 4.3 % 4.3-6.1 HEMOGLOBIN AND [id number] 11:46:00 Test Item Value Reference Range Comments HEMOGLOBIN (BEAKER) (test wpti=894) 7.8 GM/DL 13.7-17.5 HEMATOCRIT (BEAKER) (test tymn=588) 28.4 % 40.1-51.0 CBC W/PLT COUNT & AUTO [id number] 10:58:00 Test Item Value Reference Range Comments WHITE BLOOD CELL COUNT 4.5 K/ L 3.5-10.5 (BEAKER) (test vusq=236) RED BLOOD CELL COUNT (BEAKER) 3.56 M/ L 4.63-6.08 (test vziu=626) HEMOGLOBIN (BEAKER) (test 6.9 GM/DL 13.7-17.5 tudm=835) HEMATOCRIT (BEAKER) (test 25.0 % 40.1-51.0 Patient transfused cizz=280) MEAN CORPUSCULAR VOLUME 70.2 fL 79.0-92.2 (BEAKER) (test hacz=744) MEAN CORPUSCULAR HEMOGLOBIN 19.4 pg 25.7-32.2 (BEAKER) (test wios=492) MEAN CORPUSCULAR HEMOGLOBIN 27.6 GM/DL 32.3-36.5 CONC (BEAKER) (test ktvp=265) RED CELL DISTRIBUTION WIDTH 27.0 % 11.6-14.4 (BEAKER) (test tmpz=226) PLATELET COUNT (BEAKER) (test 177 K/CU MM 150-450 ffqh=422) MEAN PLATELET VOLUME (BEAKER) fL 9.4-12.4 Unable to report due to (test zigd=872) abnormal Platelet population distribution. NUCLEATED RED BLOOD CELLS 1 /100 WBC 0-0 (BEAKER) (test kukh=493) (CELLAVISION MANUAL DIFF)2018-03-26 10:58:00 Test Item Value Reference Range Comments NEUTROPHILS - REL (CELLAVISION)(BEAKER) (test 79 % gytk=6590) LYMPHOCYTES - REL (CELLAVISION)(BEAKER) (test 8 % gloh=9924) MONOCYTES - REL (CELLAVISION)(BEAKER) (test 9 % kzoh=8142) EOSINOPHILS - REL (CELLAVISION)(BEAKER) (test 2 % dvle=4453) BASOPHILS - REL (CELLAVISION)(BEAKER) (test 1 % hivo=0259) NEUTROPHILS - ABS (CELLAVISION)(BEAKER) (test 3.56 K/ul 1.78-5.38 iaad=5564) LYMPHOCYTES - ABS (CELLAVISION)(BEAKER) (test 0.36 K/ul 1.32-3.57 idri=8304) MONOCYTES - ABS (CELLAVISION)(BEAKER) (test 0.41 K/uL 0.30-0.82 zvbw=0153) EOSINOPHILS - ABS (CELLAVISION)(BEAKER) (test 0.09 K/uL 0.04-0.54 smge=2596) BASOPHILS - ABS (CELLAVISION)(BEAKER) (test 0.05 K/uL 0.01-0.08 gqtb=2326) TOTAL COUNTED (BEAKER) (test ovmu=5697) 100 MANUAL NRBC PER 100 CELLS (BEAKER) (test 1 /100 WBC 0-0 vtfy=6211) WBC MORPHOLOGY (BEAKER) (test iijk=630) Normal PLT MORPHOLOGY (BEAKER) (test czfc=139) Normal HYPOCHROMIA (BEAKER) (test vajm=867) 2+ moderate ANISOCYTOSIS (BEAKER) (test mrby=427) 1+ few POIKILOCYTES (BEAKER) (test lzjf=585) 2+ moderate OVALOCYTES (BEAKER) (test ygpa=157) 2+ moderate TSH/FREE T4 IF [id number] 02:43:00 Test Item Value Reference Range Comments THYROID STIMULATING HORMONE (BEAKER) (test 2.62 uIU/mL 0.35-4.94 seiw=487) [id number] 02:28:00 Test Item Value Reference Range Comments PHOSPHORUS (BEAKER) (test mrwh=440) 3.9 mg/dL 2.3-4.7 [id number] 02:28:00 Test Item Value Reference Range Comments MAGNESIUM (BEAKER) (test ypsn=981) 2.2 mg/dL 1.6-2.6 BASIC METABOLIC [id number] 02:28:00 Test Item Value Reference Range Comments SODIUM (BEAKER) (test 137 meq/L 136-145 wuqb=973) POTASSIUM (BEAKER) (test 3.8 meq/L 3.5-5.1 siso=156) CHLORIDE (BEAKER) (test 110 meq/L 98-107 mcqs=631) CO2 (BEAKER) (test 22 meq/L 22-29 woof=522) BLOOD UREA NITROGEN 10 mg/dL 7-21 (BEAKER) (test gbqs=090) CREATININE (BEAKER) (test 0.69 mg/dL 0.57-1.25 adwm=285) GLUCOSE RANDOM (BEAKER) 99 mg/dL 70-105 (test einw=925) CALCIUM (BEAKER) (test 8.2 mg/dL 8.4-10.2 aelu=462) EGFR (BEAKER) (test 121 mL/min/1.73 sq m ESTIMATED GFR IS NOT xfcq=0321) ACCURATE CREATININE CLEARANCE IN PREDICTING GLOMERULAR FILTRATION RATE. ESTIMATED GFR IS NOT APPLICABLE FOR DIALYSIS PATIENTS. LIPID [id number] 02:28:00 Test Item Value Reference Range Comments TRIGLYCERIDES (BEAKER) (test nixt=209) 65 mg/dL CHOLESTEROL (BEAKER) (test trba=458) 89 mg/dL HDL CHOLESTEROL (BEAKER) (test ynkp=947) 36 mg/dL LDL CHOLESTEROL CALCULATED (BEAKER) (test vqnf=738) 40 mg/dL Triglyceride Reference Range: Low Risk <150 Borderline 150- 199 High Risk 200-499 Very High Risk >=500Cholesterol Reference Range: Low Risk <200 Borderline 200-239 High Risk > 240HDL Cholesterol Reference Range: Low Risk >=60 High Risk <40LDL Cholesterol Reference Range: Optimal <100 Near Optimal 100-129 Borderline 130-159 High 160-189 Very High >=190CALCIUM, [id number] 01:31:00 Test Item Value Reference Range Comments CALCIUM IONIZED (BEAKER) (test aiqq=621) 1.02 mmol/L 1.12-1.27 PH, BLOOD (BEAKER) (test iygl=9191) 7.47 CBC W/PLT COUNT & AUTO [id number] 23:41:00 Test Item Value Reference Range Comments WHITE BLOOD CELL COUNT 3.9 K/ L 3.5-10.5 (BEAKER) (test pbtp=065) RED BLOOD CELL COUNT (BEAKER) 3.34 M/ L 4.63-6.08 (test pptz=877) HEMOGLOBIN (BEAKER) (test 6.1 GM/DL 13.7-17.5 qfmv=092) HEMATOCRIT (BEAKER) (test 23.1 % 40.1-51.0 oals=927) MEAN CORPUSCULAR VOLUME 69.2 fL 79.0-92.2 (BEAKER) (test imxy=196) MEAN CORPUSCULAR HEMOGLOBIN 18.3 pg 25.7-32.2 (BEAKER) (test gide=413) MEAN CORPUSCULAR HEMOGLOBIN 26.4 GM/DL 32.3-36.5 CONC (BEAKER) (test imzb=958) RED CELL DISTRIBUTION WIDTH 27.7 % 11.6-14.4 (BEAKER) (test yzyc=417) PLATELET COUNT (BEAKER) (test 229 K/CU MM 150-450 wuqn=209) MEAN PLATELET VOLUME (BEAKER) fL 9.4-12.4 Unable to report due to (test ozxh=337) abnormal Platelet population distribution. NUCLEATED RED BLOOD CELLS 1 /100 WBC 0-0 (BEAKER) (test doll=502) NEUTROPHILS RELATIVE PERCENT 68 % (BEAKER) (test gyzt=992) LYMPHOCYTES RELATIVE PERCENT 16 % (BEAKER) (test wbbq=285) MONOCYTES RELATIVE PERCENT 11 % (BEAKER) (test xbpi=635) EOSINOPHILS RELATIVE PERCENT 3 % (BEAKER) (test prtb=500) BASOPHILS RELATIVE PERCENT 1 % (BEAKER) (test asym=022) NEUTROPHILS ABSOLUTE COUNT 2.65 K/ L 1.78-5.38 (BEAKER) (test tmjs=326) LYMPHOCYTES ABSOLUTE COUNT 0.63 K/ L 1.32-3.57 (BEAKER) (test apai=714) MONOCYTES ABSOLUTE COUNT 0.43 K/ L 0.30-0.82 (BEAKER) (test sqtt=277) EOSINOPHILS ABSOLUTE COUNT 0.12 K/ L 0.04-0.54 (BEAKER) (test aztd=721) BASOPHILS ABSOLUTE COUNT 0.03 K/ L 0.01-0.08 (BEAKER) (test bwbj=327) IMMATURE GRANULOCYTES-RELATIVE 1 % 0-1 PERCENT (BEAKER) (test eigd=5123)
--- OUTSIDE RECORDS SUMMARY | 2019-03-23 14:39 | XMS REPORT | Clinical Summary ---
:1965 Author Organization [facility] Address [address] [place] [address] Care Team Providers Name Role Phone Pcp, No Primary Care Provider Unavailable Allergies No Known Allergies Medications Medication Sig Dispensed Refills Start Date End Date Status ferrous sulfate 325 Take 1 tablet 90 tablet 0 03/27/2018 03/27/2019 Active (65 FE) MG tablet (325 mg total) by mouth 3 (three) times daily with meals. pantoprazole Take 1 tablet 60 tablet 0 03/27/2018 Active (PROTONIX) 40 MG (40 mg total) by tablet mouth 2 (two) times daily. Active Problems Problem Noted Date Symptomatic anemia 03/25/2018 GI bleeding 03/25/2018 Bleeding nose 03/25/2018 Iron deficiency anemia 03/25/2018 Encounters Date Type Specialty Care Team Description 03/27/2018 Anesthesia Event Gastroenterology Winnie Quarles MD 03/27/2018 Surgery Gastroenterology Hugo Sainz, UPPER ENDOSCOPY 03/25/2018 - Hospital Encounter General Internal [facility], Symptomatic anemia 03/27/2018 Medicine MD Dulce Holder Alireza, MD [place], Yashash D after 03/22/2018 Social History Tobacco Use Types Packs/Day Years Used Date Never Assessed Sex Assigned at Date Recorded Not on file Job Start Date Occupation Industry Not on file Not on file Not on file Travel History Travel Start Travel End No recent travel history available. Last Filed Vital Signs Vital Sign Reading Time Taken Blood Pressure 140/65 03/27/2018 2:45 PM CDT Pulse 50 03/27/2018 2:45 PM CDT Temperature 36.2 C (97.2 F) 03/27/2018 2:45 PM CDT Respiratory Rate 18 03/27/2018 2:45 PM CDT Oxygen Saturation 100% 03/27/2018 2:45 PM CDT Inhaled Oxygen Concentration - - Weight - - Height - - Body Mass Index - - Plan of Treatment Not on file Procedures Procedure Name Priority Date/Time Associated Diagnosis Comments RHYTHM STRIP - SCAN 09/28/2018 6:20 AM CDT TRANSFUSION SERVICE 03/28/2018 6:03 REPORT - SCAN PM CDT REPORT OF PROCEDURE - 03/28/2018 11:22 ENDOSCOPY SCAN AM CDT RHYTHM STRIP - SCAN 03/28/2018 11:22 AM CDT PREPARE LEUKO-REDUCED Routine 03/27/2018 11:54 Results for this RBC PM CDT procedure are in the results section. TRANSFUSION SERVICE 03/27/2018 6:01 REPORT - SCAN PM CDT REPORT OF PROCEDURE - 03/27/2018 1:53 ENDOSCOPY URL PM CDT REPORT OF PROCEDURE - 03/27/2018 12:55 ENDOSCOPY URL PM CDT COLONOSCOPY 03/27/2018 11:00 Iron deficiency AM CDT anemia, unspecified iron deficiency anemia type UPPER ENDOSCOPY 03/27/2018 11:00 Iron deficiency AM CDT anemia, unspecified iron deficiency anemia type HEMOGLOBIN AND Routine 03/26/2018 11:34 Results for this HEMATOCRIT AM CDT procedure are in the results section. (CELLAVISION MANUAL Routine 03/26/2018 6:42 Results for this DIFF) AM CDT procedure are in the results section. CBC W/PLT COUNT & Routine 03/26/2018 6:42 Results for this AUTO DIFFERENTIAL AM CDT procedure are in the results section. CBC W/PLT COUNT & Routine 03/26/2018 6:42 Results for this AUTO DIFFERENTIAL AM CDT procedure are in the results section. TRANSFUSE Routine 03/26/2018 4:30 LEUKO-REDUCED RED AM CDT BLOOD CELLS TSH/FREE T4 IF Routine 03/26/2018 1:17 Results for this INDICATED AM CDT procedure are in the results section. LIPID PANEL Routine 03/26/2018 1:17 Results for this AM CDT procedure are in the results section. MAGNESIUM Routine 03/26/2018 1:17 Results for this AM CDT procedure are in the results section. PHOSPHORUS Routine 03/26/2018 1:17 Results for this AM CDT procedure are in the results section. CALCIUM, IONIZED Routine 03/26/2018 1:17 Results for this AM CDT procedure are in the results section. BASIC METABOLIC PANEL Routine 03/26/2018 1:17 Results for this (7) AM CDT procedure are in the results section. HEMOGLOBIN A1C Routine 03/26/2018 1:17 Results for this AM CDT procedure are in the results section. TYPE AND SCREEN, Routine 03/26/2018 12:01 Results for this AUTOMATED AM CDT procedure are in the results section. CBC W/PLT COUNT & Routine 03/25/2018 10:52 Results for this AUTO DIFFERENTIAL PM CDT procedure are in the results section. CBC W/PLT COUNT & Routine 03/25/2018 10:52 Results for this AUTO DIFFERENTIAL PM CDT procedure are in the results section. after 03/22/2018 Results RHYTHM STRIP - SCAN (09/28/2018 6:20 AM CDT)Only the most recent of2 resultswithin the time period is included. Narrative Performed At TRANSFUSION SERVICE REPORT - SCAN (03/28/2018 6:03 PM CDT)Only the most recent of2 resultswithin the time period is included. Narrative Performed At EKG-SCANNED (03/28/2018 11:22 AM CDT) Narrative Performed At Prepare Leuko-Red RBC (03/27/2018 11:54 PM CDT) CROSSMATCH COMPATIBLE SAFETRACE TX Unit ABO O Pos SAFETRACE TX UNIT NUMBER [id number] [facility]AFET[facility]ACE TX Status TRANSFUSED SAFETRACE TX Blood Bank Product RED BLOOD CELLS SAFETRACE TX PRODUCT CODE [id number] SAFET[facility]ACE TX Specimen Other Performing Organization Address City/State/Zipcode Phone Number SAFETRACE TX REPORT OF PROCEDURE - ENDOSCOPY URL (03/27/2018 1:53 PM CDT) Narrative Performed At REPORT OF PROCEDURE - ENDOSCOPY URL (03/27/2018 12:55 PM CDT) Narrative Performed At Hemoglobin and hematocrit (03/26/2018 11:34 AM CDT) Hemoglobin 7.8 (L) 13.7 - 17.5 GM/DL [facility] Hematocrit 28.4 (L) 40.1 - 51.0 % [facility] Specimen Blood Performing Organization Address City/State/Zipcode Phone Number [facility] [address] [place] [phone] CENTER Manual Differential (03/26/2018 6:42 AM CDT) % Neutros 79 % [facility] % Lymphs 8 % [facility] % Monos 9 % [facility] % Eos 2 % [facility] % Baso 1 % [facility] # Neutros 3.56 1.78 - 5.38 K/ul [facility] # Lymphs 0.36 (L) 1.32 - 3.57 K/ul [facility] # Monos 0.41 0.30 - 0.82 K/uL [facility] # Eos 0.09 0.04 - 0.54 K/uL [facility] # Baso 0.05 0.01 - 0.08 K/uL [facility] Total Counted 100 [facility] nRBC (manual) 1 (H) 0 - 0 /100 WBC [facility] WBC Morphology Normal [facility] Platelet Morphology Normal [facility] Hypochromia 2+ moderate [facility] Anisocytosis 1+ few [facility] Poikilocytes 2+ moderate [facility] Ovalocytes 2+ moderate [facility] Specimen Blood Performing Organization Address City/State/Zipcode Phone Number [facility] [address] [place] [phone] [place] CBC with platelet count + automated diff (03/26/2018 6:42 AM CDT)Only the most recent of2 resultswithin the time period is included. WBC 4.5 3.5 - 10.5 K/L [facility] RBC 3.56 (L) 4.63 - 6.08 M/L [facility] Hemoglobin 6.9 (L) 13.7 - 17.5 GM/DL [facility] Hematocrit 25.0 (L)Comment: Patient 40.1 - 51.0 % [facility] transfused [facility] [place] MCV 70.2 (L) 79.0 - 92.2 fL [facility] MCH 19.4 (L) 25.7 - 32.2 pg [facility] MCHC 27.6 (L) 32.3 - 36.5 GM/DL [facility] RDW 27.0 (H) 11.6 - 14.4 % [facility] Platelets 177 150 - 450 K/CU MM [facility] MPV Comment: Unable to report due 9.4 - 12.4 fL [facility] to abnormal Platelet [facility]ENTER population distribution. nRBC 1 (H) 0 - 0 /100 WBC [facility] Specimen Blood Performing Organization Address City/[facility]/Zipcode Phone Number [address] [address] [phone] CENTER Transfuse Leuko-Red RBC (03/26/2018 4:30 AM CDT)TSH/Free T4 If Indicated (03/26 1:17 AM CDT) TSH 2.62 0.35 - 4.94 uIU/mL [facility] Specimen Blood Performing Organization Address City/[facility]/Zipcode Phone Number [address] [phone] CENTER Calcium, Ionized (03/26/2018 1:17 AM CDT) Calcium, Ion 1.02 (L) 1.12 - 1.27 mmol/L [facility] pH, Blood 7.47 [facility] Specimen Blood Performing Organization Address City/State/Zipcode Phone Number [address] [phone] CENTER Phosphorus (03/26/2018 1:17 AM CDT) Phosphorus 3.9 2.3 - 4.7 mg/dL [facility] Specimen Blood Performing Organization Address City/State/Zipcode Phone Number [address] [phone] CENTER Magnesium (03/26/2018 1:17 AM CDT) Magnesium 2.2 1.6 - 2.6 mg/dL [facility] Specimen Blood Performing Organization Address City/[facility]/Zipcode Phone Number [address] [address] [phone] [place] Hemoglobin A1c (03/26/2018 1:17 AM CDT) Hemoglobin A1C 4.3 4.3 - 6.1 % [facility] Specimen Blood Performing Organization Address City/State/Zipcode Phone Number [address] [address] [phone] CENTER Lipid panel (03/26/2018 1:17 AM CDT) Triglycerides 65 mg/dL [facility] Cholesterol 89 mg/dL [facility] HDL 36 mg/dL [facility] LDL Calculated 40 mg/dL [facility] Specimen Blood Narrative Performed At [facility] Triglyceride Reference Range: Low Risk <150 [id number] High Risk 200-499 Very High Risk>=500 Cholesterol Reference Range: Low Risk <200 [id number] High Risk>240 HDL Cholesterol Reference Range: Low Risk >=60 High Risk <40 LDL Cholesterol Reference Range: Optimal<100 Near [id number] Very High >=190 Performing Organization Address [facility]/Zipcode Phone Number [address] [address] [phone] CENTER Basic Metabolic Panel (03/26/2018 1:17 AM CDT) Sodium 137 136 - 145 meq/L [facility] Potassium 3.8 3.5 - 5.1 meq/L [facility] Chloride 110 (H) 98 - 107 meq/L [facility] CO2 22 22 - 29 meq/L [facility] BUN 10 7 - 21 mg/dL [facility] Creatinine 0.69 0.57 - 1.25 mg/dL [facility] Glucose 99 70 - 105 mg/dL [facility] Calcium 8.2 (L) 8.4 - 10.2 mg/dL [facility] EGFR 121Comment: ESTIMATED GFR IS mL/min/1.73 sq m [facility] NOT ACCURATE CREATININE [facility] CENTER CLEARANCE IN PREDICTING GLOMERULAR FILTRATION RATE. ESTIMATED GFR IS NOT APPLICABLE FOR DIALYSIS PATIENTS. Specimen Blood Performing Organization Address [facility] Phone Number [address] [phone] CENTER Type and screen, automated (03/26/2018 12:01 AM CDT) ABO/RH AUTOMATED (BEAKER) O POSITIVE [facility] Ab Scrn NEGATIVE [facility] Specimen Blood Performing Organization Address City/[facility]/Zipcode Phone Number [address] [address] after 03/22/2018 Insurance Payer Benefit Plan / Subscriber ID Type Phone Address Group BLUE CROSS/BLUE BCBS PPO POS EPO xxxxxxxxxxxx PPO [phone] [address] [place] [address] Advance Directives For more information, please contact:[address] [phone] Code Status Date Activated Date Inactivated Comments Full Code 03/25/2018 4:07 PM 03/27/2018 8:50 PM This code status was determined by: Patient
[2019-03-23] MEDS ORDERED: ALBUTEROL 2.5 MG/3 ML NEB SOL IH PRN (15:05)
[2019-03-23 15:54] LABS: Absolute Lymphocytes (CBC) 0.5 K/uL (0.7-4.9); Basophils % 0.9 % (0-1.3); Lymphocytes % 13.2 % (15.3-44.8); RBC Red Blood Cell Count 3.88 M/uL (4.33-5.43)
[2019-03-23] MEDS ORDERED: ONDANSETRON 4 MG/2 ML VIAL IV PRN (16:00)
[2019-03-23] MEDS ORDERED: ACETAMINOPHEN 325 MG TABLET PO PRN (16:00)
[2019-03-23] MEDS ORDERED: PNEUMOCOCCAL VACCINE 0.5 ML IMVAC ONE (16:00)
[2019-03-23] MEDS ORDERED: DIPHENHYDRAMINE 25 MG TAB/CAP PO PRN (16:00)
[2019-03-23] MEDS ORDERED: ONDANSETRON 4 MG (ODT) TAB PO PRN (16:00)
[2019-03-23] MEDS ORDERED: NACHLORIDE 0.45% 1,000 ML IV SCH (16:00)
[2019-03-23] MEDS ORDERED: POLYETHYL GLY 3350 17 GM/DOSE PO PRN (16:00)
[2019-03-23] MEDS ORDERED: LOPERAMIDE HCL 2 MG CAPSULE PO PRN (16:00)
[2019-03-23 16:05] VITALS: BMI 26.7
--- NOTE | 2019-03-23 16:14 | RAD REPORT ---
EXAM DESCRIPTION: Sheldon Nguyễn (2 Views)03/23/2019 4:07 pm CLINICAL HISTORY: Anemia COMPARISON: October 2018 FINDINGS: The lungs appear clear of acute infiltrate. The heart is normal size IMPRESSION: No acute abnormalities displayed
[2019-03-23 16:19] LABS: Protime INR 1.11
[2019-03-23] MEDS ORDERED: NA CHLORIDE 0.9% 100 ML ONE (17:14)
[2019-03-23 17:30] LABS: ALT/SGPT 27 U/L (12-78); AST/SGOT 13 U/L (15-37); Albumin 4.5 g/dL (3.4-5.0); Alkaline Phosphatase 78 U/L (45-117); BUN Blood Urea Nitrogen 11 mg/dL (7-18); Bicarbonate 27 mmol/L (21-32); Bilirubin Direct 0.3 mg/dL (0-0.2); Bilirubin Total 1.1 mg/dL (0.2-1.0); Glucose Level 129 mg/dL (74-106); Magnesium 2.3 mg/dL (1.8-2.4); Potassium 3.5 mmol/L (3.5-5.1); Protein, Total 7.6 g/dL (6.4-8.2); Sodium Level 141 mmol/L (136-145)
[2019-03-23] MEDS: LEVALBUTEROL 1.25 MG/3 ML NEB IH SCH (19:50)
[2019-03-23] MEDS: IPRATROPIUM BROM 0.5MG/2.5ML IH SCH (19:50)
[2019-03-23 21:11] LABS: Urine Appearance CLEAR; Urine Bilirubin NEGATIVE (NEG); Urine Blood NEGATIVE (NEG); Urine Color YELLOW; Urine Glucose NEGATIVE (NEG); Urine Protein NEGATIVE (NEG); Urine pH 7.5 (5.0-7.0)
[2019-03-23 21:17] LABS: Urine Microscopic Reflex NO UMIC
[2019-03-23] MEDS ORDERED: NA CHLORIDE 0.9% 100 ML IV ONE (21:58)
[2019-03-23 22:10] LABS: Anisocytosis 3+; Blood Morphology Comment NOTED (NOT SEEN); Hypochromasia 3+; Platelet Estimate ADEQ; Polychromasia 2+; Urine White Blood Cell Casts OK
[2019-03-23 22:11] LABS: Ovalocytes 1+; Poikilocytosis 3+; Teardrop Cell 1+
[2019-03-24] MEDS: LEVALBUTEROL 1.25 MG/3 ML NEB IH SCH ×3 (01:15→14:00)
[2019-03-24] MEDS: IPRATROPIUM BROM 0.5MG/2.5ML IH SCH ×3 (01:15→14:00)
[2019-03-24] MEDS ORDERED: NA CHLORIDE 0.9% 100 ML IV ONE ×2 (01:25→05:09)
[2019-03-24 05:14] LABS: Absolute Lymphocytes (CBC) 0.6 K/uL (0.7-4.9); Basophils % 1.5 % (0-1.3); Lymphocytes % 17.3 % (15.3-44.8); MPV 8.8 fL (7.6-11.3); RBC Red Blood Cell Count 3.89 M/uL (4.33-5.43)
[2019-03-24 05:30] LABS: BUN Blood Urea Nitrogen 9 mg/dL (7-18); Bicarbonate 24 mmol/L (21-32); Glucose Level 104 mg/dL (74-106); Magnesium 2.1 mg/dL (1.8-2.4); Potassium 4.1 mmol/L (3.5-5.1); Sodium Level 143 mmol/L (136-145)
--- NOTE | 2019-03-24 09:41 | P.DS ---
Admission Date: 03/23/19 Discharge Date: 03/24/19 Disposition: ROUTINE DISCHARGE Discharge Condition: FAIR Hospital Course: LESLEY IS DOING GREAT. HE GETS VERY ANEMIC WITH HHT RELATED EPISTAXIS OFTEN. HE HAS BEEN TO [facility] FOR HHT, I RECOMMENDED AND THEY ARE WORKING WITH [employer] TO GET HIM STARTED ON ANTIBODY TO REDUCE HHT BLEEDING. Vital Signs/Physical Exam: Temp Pulse Resp BP Pulse Ox 98.1 F 61 18 110/60 100 03/24/19 04:00 03/24/19 04:00 03/24/19 04:00 03/24/19 04:00 03/24/19 04:00 Laboratory Data at Discharge: WBC 3.4 K/uL (4.3-10.9) L 03/24/19 05:01 Hgb 7.1 g/dL (13.6-17.9) L* 03/24/19 05:01 Hct 24.0 % (39.6-49.0) L 03/24/19 05:01 Plt Count 143 K/uL (152-406) L D 03/24/19 05:01 PT 13.0 SECONDS (9.5-12.5) H 03/23/19 15:39 INR 1.11 03/23/19 15:39 APTT 30.9 SECONDS (24.3-36.9) 03/23/19 15:39 Sodium 143 mmol/L (136-145) 03/24/19 05:01 Potassium 4.1 mmol/L (3.5-5.1) 03/24/19 05:01 BUN 9 mg/dL (7-18) 03/24/19 05:01 Creatinine 0.67 mg/dL (0.55-1.3) 03/24/19 05:01 Glucose 104 mg/dL (74-106) 03/24/19 05:01 Phosphorus 2.9 mg/dL (2.5-4.9) 03/23/19 15:39 Magnesium 2.1 mg/dL (1.8-2.4) 03/24/19 05:01 Total Bilirubin 1.1 mg/dL (0.2-1.0) H 03/23/19 15:39 AST 13 U/L (15-37) L 03/23/19 15:39 ALT 27 U/L (12-78) 03/23/19 15:39 Alkaline Phosphatase 78 U/L (45-117) 03/23/19 15:39 Home Medications: NK [No Home Meds] 10/11/18 Diet: Regular
[2019-03-24 11:11] LABS: Hematocrit 26.4 % (39.6-49.0)
[2019-03-24 14:23] VITALS: O2SAT 99
[2019-03-24 16:14] LABS: Hematocrit 29.3 % (39.6-49.0)
[2019-03-24 16:32] VITALS: BP 156/73; TEMP 97.6
--- NOTE | 2019-03-26 07:11 | EKG ---
Test Date: 2019-03-23 Test Time: 17:53:44 Bell Spinner: NATTY MEASUREMENT RESULTS: Intervals: Rate: 69 NJ: 152 QRSD: 102 QT: 406 QTc: 435 [place]: P: 58 NJ: 152 QRS: 64 T: 40 INTERPRETIVE STATEMENTS: Normal sinus rhythm Normal ECG Compared to ECG 10/11/2018 22:27:14 Sinus bradycardia no longer present Electronically Signed On 03-26-19 07:11:10 CDT by Quentin Damon
== END 2019-03-24 17:06 | disposition home or self-care (01) ==
LOC: 4TH 14:36
PROVIDERS: ADMIT Internal Medicine; ATTEND Internal Medicine
DX: I78.0 Hereditary hemorrhagic telangiectasia (principal); D64.9 Anemia, unspecified
CPT/HCPCS: 36415; 36430; 71046; 80048; 80076; 81003; 82306; 82607; 83735; 84100; 84443; 85014; 85018; 85025; 85610; 85730; 86850; 86900; 86901; 87086; 87088; 93005; 94640; G0378; P9016

== ENCOUNTER 2019-05-03 19:43 | Observation (INO) | payer BC ==
[2019-05-03] MEDS ORDERED: ACETAMINOPHEN 325 MG TABLET PO PRN (21:37)
[2019-05-03] MEDS ORDERED: DIPHENHYDRAMINE 25 MG TAB/CAP PO PRN (21:39)
[2019-05-03] MEDS ORDERED: LOPERAMIDE HCL 2 MG CAPSULE PO PRN (21:43)
[2019-05-03] MEDS ORDERED: POLYETHYL GLY 3350 17 GM/DOSE PO PRN (21:44)
[2019-05-03] MEDS ORDERED: ONDANSETRON 4 MG/2 ML VIAL IV PRN (21:44)
[2019-05-03] MEDS ORDERED: ONDANSETRON 4 MG (ODT) TAB PO PRN (21:44)
[2019-05-03] MEDS ORDERED: NACHLORIDE 0.45% 1,000 ML IV SCH (22:00)
[2019-05-04] MEDS ORDERED: NA CHLORIDE 0.9% 250 ML ONE ×2 (00:49→04:57)
[2019-05-04 02:26] VITALS: BMI 22.8
[2019-05-04 06:03] LABS: Absolute Lymphocytes (CBC) 0.5 K/uL (0.7-4.9); Basophils % 0.8 % (0-1.3); Hematocrit 21.3 % (39.6-49.0); Lymphocytes % 18.1 % (15.3-44.8); MPV 8.7 fL (7.6-11.3); RBC Red Blood Cell Count 3.54 M/uL (4.33-5.43)
[2019-05-04 06:11] LABS: BUN Blood Urea Nitrogen 12 mg/dL (7-18); Bicarbonate 26 mmol/L (21-32); Glucose Level 94 mg/dL (74-106); Magnesium 2.1 mg/dL (1.8-2.4); Potassium 3.9 mmol/L (3.5-5.1); Sodium Level 141 mmol/L (136-145)
--- NOTE | 2019-05-04 09:41 | RAD REPORT ---
EXAM DESCRIPTION: Sheldon Nguyễn (2 Views)05/04/2019 8:59 am CLINICAL HISTORY: Chest x-ray prior to blood transfusion COMPARISON: March 2019 FINDINGS: The lungs appear clear of acute infiltrate. The heart is normal size IMPRESSION: No acute abnormalities displayed
--- NOTE | 2019-05-04 11:03 | EKG ---
Test Date: 2019-05-04 Test Time: 07:12:31 Cutter Operator Brick: IDANIA MEASUREMENT RESULTS: Intervals: Rate: 58 SC: 146 QRSD: 96 QT: 412 QTc: 404 [place]: P: 51 SC: 146 QRS: 75 T: 59 INTERPRETIVE STATEMENTS: Sinus bradycardia with sinus arrhythmia Otherwise normal ECG Compared to ECG 03/23/2019 17:53:44 Sinus rhythm no longer present Electronically Signed On 05-04-19 11:02:14 CDT by Quentin Damon
[2019-05-04 17:27] VITALS: BP 132/72; TEMP 98.9
[2019-05-04 20:09] LABS: Hematocrit 30.1 % (39.6-49.0)
[2019-05-04 22:12] VITALS: O2SAT 99
--- OUTSIDE RECORDS SUMMARY | 2019-05-13 19:05 | XMS REPORT ---
:1965 [facility] Address [address] [place] [address] Care Team Providers Name Role Phone CHRIS [...] Reference Range Comments HEMOGLOBIN A1C (BEAKER) (test kkee=463) 4.3 % 4.3-6.1 HEMOGLOBIN AND [id number] 11:46:00 Test Item Value Reference Range Comments HEMOGLOBIN (BEAKER) (test xoui=847) 7.8 GM/DL 13.7-17.5 HEMATOCRIT (BEAKER) (test qiio=476) 28.4 % 40.1-51.0 CBC W/PLT COUNT & AUTO [id number] 10:58:00 Test Item Value Reference Range Comments WHITE BLOOD CELL COUNT 4.5 K/ L 3.5-10.5 (BEAKER) (test ilhe=249) RED BLOOD CELL COUNT (BEAKER) 3.56 M/ L 4.63-6.08 (test cqga=614) HEMOGLOBIN (BEAKER) (test 6.9 GM/DL 13.7-17.5 xilx=811) HEMATOCRIT (BEAKER) (test 25.0 % 40.1-51.0 Patient transfused mdtu=467) MEAN CORPUSCULAR VOLUME 70.2 fL 79.0-92.2 (BEAKER) (test aonh=326) MEAN CORPUSCULAR HEMOGLOBIN 19.4 pg 25.7-32.2 (BEAKER) (test hxyj=886) MEAN CORPUSCULAR HEMOGLOBIN 27.6 GM/DL 32.3-36.5 CONC (BEAKER) (test uitw=708) RED CELL DISTRIBUTION WIDTH 27.0 % 11.6-14.4 (BEAKER) (test yyuu=099) PLATELET COUNT (BEAKER) (test 177 K/CU MM 150-450 kmys=509) MEAN PLATELET VOLUME (BEAKER) fL 9.4-12.4 Unable to report due to (test jiut=408) abnormal Platelet population distribution. NUCLEATED RED BLOOD CELLS 1 /100 WBC 0-0 (BEAKER) (test cvxm=770) (CELLAVISION MANUAL DIFF)2018-03-26 10:58:00 Test Item Value Reference Range Comments NEUTROPHILS - REL (CELLAVISION)(BEAKER) (test 79 % uccf=0292) LYMPHOCYTES - REL (CELLAVISION)(BEAKER) (test 8 % ywcg=1588) MONOCYTES - REL (CELLAVISION)(BEAKER) (test 9 % mjhn=6604) EOSINOPHILS - REL (CELLAVISION)(BEAKER) (test 2 % mxzv=1803) BASOPHILS - REL (CELLAVISION)(BEAKER) (test 1 % cngx=5452) NEUTROPHILS - ABS (CELLAVISION)(BEAKER) (test 3.56 K/ul 1.78-5.38 jhhc=3656) LYMPHOCYTES - ABS (CELLAVISION)(BEAKER) (test 0.36 K/ul 1.32-3.57 otcq=8933) MONOCYTES - ABS (CELLAVISION)(BEAKER) (test 0.41 K/uL 0.30-0.82 uiqy=0102) EOSINOPHILS - ABS (CELLAVISION)(BEAKER) (test 0.09 K/uL 0.04-0.54 qipe=7683) BASOPHILS - ABS (CELLAVISION)(BEAKER) (test 0.05 K/uL 0.01-0.08 cciv=0389) TOTAL COUNTED (BEAKER) (test ddsi=3727) 100 MANUAL NRBC PER 100 CELLS (BEAKER) (test 1 /100 WBC 0-0 ewws=0830) WBC MORPHOLOGY (BEAKER) (test orle=733) Normal PLT MORPHOLOGY (BEAKER) (test cscx=261) Normal HYPOCHROMIA (BEAKER) (test kasl=796) 2+ moderate ANISOCYTOSIS (BEAKER) (test ssfy=008) 1+ few POIKILOCYTES (BEAKER) (test hqpu=326) 2+ moderate OVALOCYTES (BEAKER) (test kmdn=626) 2+ moderate TSH/FREE T4 IF [id number] 02:43:00 Test Item Value Reference Range Comments THYROID STIMULATING HORMONE (BEAKER) (test 2.62 uIU/mL 0.35-4.94 qijb=027) [id number] 02:28:00 Test Item Value Reference Range Comments PHOSPHORUS (BEAKER) (test qohw=936) 3.9 mg/dL 2.3-4.7 [id number] 02:28:00 Test Item Value Reference Range Comments MAGNESIUM (BEAKER) (test omuh=376) 2.2 mg/dL 1.6-2.6 BASIC METABOLIC [id number] 02:28:00 Test Item Value Reference Range Comments SODIUM (BEAKER) (test 137 meq/L 136-145 ugvj=186) POTASSIUM (BEAKER) (test 3.8 meq/L 3.5-5.1 wiln=109) CHLORIDE (BEAKER) (test 110 meq/L 98-107 blem=650) CO2 (BEAKER) (test 22 meq/L 22-29 xxlf=943) BLOOD UREA NITROGEN 10 mg/dL 7-21 (BEAKER) (test aijf=089) CREATININE (BEAKER) (test 0.69 mg/dL 0.57-1.25 eotg=385) GLUCOSE RANDOM (BEAKER) 99 mg/dL 70-105 (test bdde=405) CALCIUM (BEAKER) (test 8.2 mg/dL 8.4-10.2 hktk=950) EGFR (BEAKER) (test 121 mL/min/1.73 sq m ESTIMATED GFR IS NOT whgi=1105) ACCURATE CREATININE CLEARANCE IN PREDICTING GLOMERULAR FILTRATION RATE. ESTIMATED GFR IS NOT APPLICABLE FOR DIALYSIS PATIENTS. LIPID [id number] 02:28:00 Test Item Value Reference Range Comments TRIGLYCERIDES (BEAKER) (test aujw=727) 65 mg/dL CHOLESTEROL (BEAKER) (test ftut=691) 89 mg/dL HDL CHOLESTEROL (BEAKER) (test uqfv=659) 36 mg/dL LDL CHOLESTEROL CALCULATED (BEAKER) (test ppcc=331) 40 mg/dL Triglyceride Reference Range: Low Risk <150 Borderline 150- 199 High Risk 200-499 Very High Risk >=500Cholesterol Reference Range: Low Risk <200 Borderline 200-239 High Risk > 240HDL Cholesterol Reference Range: Low Risk >=60 High Risk <40LDL Cholesterol Reference Range: Optimal <100 Near Optimal 100-129 Borderline 130-159 High 160-189 Very High >=190CALCIUM, [id number] 01:31:00 Test Item Value Reference Range Comments CALCIUM IONIZED (BEAKER) (test mkxu=407) 1.02 mmol/L 1.12-1.27 PH, BLOOD (BEAKER) (test mhec=2757) 7.47 CBC W/PLT COUNT & AUTO [id number] 23:41:00 Test Item Value Reference Range Comments WHITE BLOOD CELL COUNT 3.9 K/ L 3.5-10.5 (BEAKER) (test dryy=451) RED BLOOD CELL COUNT (BEAKER) 3.34 M/ L 4.63-6.08 (test vasi=878) HEMOGLOBIN (BEAKER) (test 6.1 GM/DL 13.7-17.5 hrpd=211) HEMATOCRIT (BEAKER) (test 23.1 % 40.1-51.0 gzsg=713) MEAN CORPUSCULAR VOLUME 69.2 fL 79.0-92.2 (BEAKER) (test vxui=446) MEAN CORPUSCULAR HEMOGLOBIN 18.3 pg 25.7-32.2 (BEAKER) (test rnse=018) MEAN CORPUSCULAR HEMOGLOBIN 26.4 GM/DL 32.3-36.5 CONC (BEAKER) (test cvhu=853) RED CELL DISTRIBUTION WIDTH 27.7 % 11.6-14.4 (BEAKER) (test nynp=000) PLATELET COUNT (BEAKER) (test 229 K/CU MM 150-450 xspj=103) MEAN PLATELET VOLUME (BEAKER) fL 9.4-12.4 Unable to report due to (test eqcx=875) abnormal Platelet population distribution. NUCLEATED RED BLOOD CELLS 1 /100 WBC 0-0 (BEAKER) (test qzfb=183) NEUTROPHILS RELATIVE PERCENT 68 % (BEAKER) (test xoph=124) LYMPHOCYTES RELATIVE PERCENT 16 % (BEAKER) (test ywjf=186) MONOCYTES RELATIVE PERCENT 11 % (BEAKER) (test naas=575) EOSINOPHILS RELATIVE PERCENT 3 % (BEAKER) (test ktoq=193) BASOPHILS RELATIVE PERCENT 1 % (BEAKER) (test sfdk=205) NEUTROPHILS ABSOLUTE COUNT 2.65 K/ L 1.78-5.38 (BEAKER) (test lecr=400) LYMPHOCYTES ABSOLUTE COUNT 0.63 K/ L 1.32-3.57 (BEAKER) (test uxis=044) MONOCYTES ABSOLUTE COUNT 0.43 K/ L 0.30-0.82 (BEAKER) (test jjtu=864) EOSINOPHILS ABSOLUTE COUNT 0.12 K/ L 0.04-0.54 (BEAKER) (test atcb=535) BASOPHILS ABSOLUTE COUNT 0.03 K/ L 0.01-0.08 (BEAKER) (test rrcf=995) IMMATURE GRANULOCYTES-RELATIVE 1 % 0-1 PERCENT (BEAKER) (test espp=7037)
--- NOTE | 2019-05-17 19:19 | P.SSS ---
Patient History Date of Service: 05/17/19 Reason for admission: ANEMIA History of Present Illness: MR. BARKER ROUTINELY COMES FOR ANEMIA FROM [facility] SYNDROME. HE GETS SYMPTOMATIC WHEN LESS THAN 6 GM HG. HE IS GOING FOR SPECIALIZED THERAPY BY [facility] IN [place] WHERE I SUGGESTED HE SHOULD GO. AFTER GETTING 4 PACKED RBCS HE WAS SEND HOME IN STABLE CONDITON. Allergies No Known Allergies Allergy (Verified 05/03/19 21:48) Home Medications: NK [No Home Meds] 10/11/18 - Past Medical/Surgical History Has patient received pneumonia vaccine in the past: No Diabetic: No -: Osler-Nunez Rendu Syndrome (hht) -: egd x2 -: colonoscopy - Family History Father -: Heart disease, Cancer Mother -: Hypertension - Social History Smoking Status: Never smoker Alcohol use: No CD- Drugs: No Caffeine use: Yes Place of Residence: Home Review of Systems 10-point ROS is otherwise unremarkable Physical Examination - Vital Signs Temperature: 98.9 F Blood Pressure: 132/72 Pulse: 60 Respirations: 16 Pulse Ox (%): 100 - Physical Exam General: Alert, In no apparent distress HEENT: Atraumatic, PERRLA, Mucous membr. 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 - Disposition Disposition: ROUTINE DISCHARGE Condition: FAIR Diet: Regular
== END 2019-05-04 20:50 | disposition home or self-care (01) ==
LOC: ER 19:43 → ERHOLD 19:59 → 4TH 20:26
PROVIDERS: ADMIT Internal Medicine; ATTEND Internal Medicine
DX: I78.0 Hereditary hemorrhagic telangiectasia (principal); D64.9 Anemia, unspecified
CPT/HCPCS: 36430; 93005; 85025; 80048; 36415; 86900; 83735; 86850; 86901; 85018; 85014; 71046; G0379; P9016 ×4; J7030 ×2; G0378 ×3

== ENCOUNTER 2019-06-22 18:07 | Observation (INO) | payer BC ==
--- OUTSIDE RECORDS SUMMARY | 2019-06-22 18:09 | XMS REPORT ---
:1965 [facility] Address [address] [place] [address] Care Team Providers Name Role Phone CHRIS [...] Reference Range Comments HEMOGLOBIN A1C (BEAKER) (test ythg=028) 4.3 % 4.3-6.1 HEMOGLOBIN AND [id number] 11:46:00 Test Item Value Reference Range Comments HEMOGLOBIN (BEAKER) (test uqlk=449) 7.8 GM/DL 13.7-17.5 HEMATOCRIT (BEAKER) (test vcji=306) 28.4 % 40.1-51.0 CBC W/PLT COUNT & AUTO [id number] 10:58:00 Test Item Value Reference Range Comments WHITE BLOOD CELL COUNT 4.5 K/ L 3.5-10.5 (BEAKER) (test gymv=163) RED BLOOD CELL COUNT (BEAKER) 3.56 M/ L 4.63-6.08 (test ceuf=843) HEMOGLOBIN (BEAKER) (test 6.9 GM/DL 13.7-17.5 uprj=738) HEMATOCRIT (BEAKER) (test 25.0 % 40.1-51.0 Patient transfused navd=043) MEAN CORPUSCULAR VOLUME 70.2 fL 79.0-92.2 (BEAKER) (test bpbl=868) MEAN CORPUSCULAR HEMOGLOBIN 19.4 pg 25.7-32.2 (BEAKER) (test dzsn=832) MEAN CORPUSCULAR HEMOGLOBIN 27.6 GM/DL 32.3-36.5 CONC (BEAKER) (test ajnw=464) RED CELL DISTRIBUTION WIDTH 27.0 % 11.6-14.4 (BEAKER) (test qeuz=764) PLATELET COUNT (BEAKER) (test 177 K/CU MM 150-450 gkec=397) MEAN PLATELET VOLUME (BEAKER) fL 9.4-12.4 Unable to report due to (test mtfd=802) abnormal Platelet population distribution. NUCLEATED RED BLOOD CELLS 1 /100 WBC 0-0 (BEAKER) (test bbrw=306) (CELLAVISION MANUAL DIFF)2018-03-26 10:58:00 Test Item Value Reference Range Comments NEUTROPHILS - REL (CELLAVISION)(BEAKER) (test 79 % mccx=9321) LYMPHOCYTES - REL (CELLAVISION)(BEAKER) (test 8 % upxn=6151) MONOCYTES - REL (CELLAVISION)(BEAKER) (test 9 % uyim=5853) EOSINOPHILS - REL (CELLAVISION)(BEAKER) (test 2 % vone=0267) BASOPHILS - REL (CELLAVISION)(BEAKER) (test 1 % axid=1391) NEUTROPHILS - ABS (CELLAVISION)(BEAKER) (test 3.56 K/ul 1.78-5.38 ghna=1310) LYMPHOCYTES - ABS (CELLAVISION)(BEAKER) (test 0.36 K/ul 1.32-3.57 kkvi=0683) MONOCYTES - ABS (CELLAVISION)(BEAKER) (test 0.41 K/uL 0.30-0.82 ipjq=4103) EOSINOPHILS - ABS (CELLAVISION)(BEAKER) (test 0.09 K/uL 0.04-0.54 hviv=8174) BASOPHILS - ABS (CELLAVISION)(BEAKER) (test 0.05 K/uL 0.01-0.08 wcjt=5183) TOTAL COUNTED (BEAKER) (test mxfh=8297) 100 MANUAL NRBC PER 100 CELLS (BEAKER) (test 1 /100 WBC 0-0 pthk=1795) WBC MORPHOLOGY (BEAKER) (test hltc=610) Normal PLT MORPHOLOGY (BEAKER) (test bcxr=725) Normal HYPOCHROMIA (BEAKER) (test dsbx=336) 2+ moderate ANISOCYTOSIS (BEAKER) (test rway=541) 1+ few POIKILOCYTES (BEAKER) (test iyoq=340) 2+ moderate OVALOCYTES (BEAKER) (test jrve=479) 2+ moderate TSH/FREE T4 IF [id number] 02:43:00 Test Item Value Reference Range Comments THYROID STIMULATING HORMONE (BEAKER) (test 2.62 uIU/mL 0.35-4.94 wyca=428) [id number] 02:28:00 Test Item Value Reference Range Comments PHOSPHORUS (BEAKER) (test vnhc=258) 3.9 mg/dL 2.3-4.7 [id number] 02:28:00 Test Item Value Reference Range Comments MAGNESIUM (BEAKER) (test hydb=405) 2.2 mg/dL 1.6-2.6 BASIC METABOLIC [id number] 02:28:00 Test Item Value Reference Range Comments SODIUM (BEAKER) (test 137 meq/L 136-145 gult=919) POTASSIUM (BEAKER) (test 3.8 meq/L 3.5-5.1 vzmq=174) CHLORIDE (BEAKER) (test 110 meq/L 98-107 sjwn=432) CO2 (BEAKER) (test 22 meq/L 22-29 ysch=201) BLOOD UREA NITROGEN 10 mg/dL 7-21 (BEAKER) (test zhhx=836) CREATININE (BEAKER) (test 0.69 mg/dL 0.57-1.25 lcnz=254) GLUCOSE RANDOM (BEAKER) 99 mg/dL 70-105 (test asbu=750) CALCIUM (BEAKER) (test 8.2 mg/dL 8.4-10.2 atnh=761) EGFR (BEAKER) (test 121 mL/min/1.73 sq m ESTIMATED GFR IS NOT wywu=1344) ACCURATE CREATININE CLEARANCE IN PREDICTING GLOMERULAR FILTRATION RATE. ESTIMATED GFR IS NOT APPLICABLE FOR DIALYSIS PATIENTS. LIPID [id number] 02:28:00 Test Item Value Reference Range Comments TRIGLYCERIDES (BEAKER) (test dvfn=115) 65 mg/dL CHOLESTEROL (BEAKER) (test vfzx=287) 89 mg/dL HDL CHOLESTEROL (BEAKER) (test nhqq=060) 36 mg/dL LDL CHOLESTEROL CALCULATED (BEAKER) (test kozr=676) 40 mg/dL Triglyceride Reference Range: Low Risk <150 Borderline 150- 199 High Risk 200-499 Very High Risk >=500Cholesterol Reference Range: Low Risk <200 Borderline 200-239 High Risk > 240HDL Cholesterol Reference Range: Low Risk >=60 High Risk <40LDL Cholesterol Reference Range: Optimal <100 Near Optimal 100-129 Borderline 130-159 High 160-189 Very High >=190CALCIUM, [id number] 01:31:00 Test Item Value Reference Range Comments CALCIUM IONIZED (BEAKER) (test mllx=396) 1.02 mmol/L 1.12-1.27 PH, BLOOD (BEAKER) (test okut=3136) 7.47 CBC W/PLT COUNT & AUTO [id number] 23:41:00 Test Item Value Reference Range Comments WHITE BLOOD CELL COUNT 3.9 K/ L 3.5-10.5 (BEAKER) (test whdd=445) RED BLOOD CELL COUNT (BEAKER) 3.34 M/ L 4.63-6.08 (test tqmf=364) HEMOGLOBIN (BEAKER) (test 6.1 GM/DL 13.7-17.5 rqkd=199) HEMATOCRIT (BEAKER) (test 23.1 % 40.1-51.0 rlqy=159) MEAN CORPUSCULAR VOLUME 69.2 fL 79.0-92.2 (BEAKER) (test vrfb=366) MEAN CORPUSCULAR HEMOGLOBIN 18.3 pg 25.7-32.2 (BEAKER) (test vtsj=935) MEAN CORPUSCULAR HEMOGLOBIN 26.4 GM/DL 32.3-36.5 CONC (BEAKER) (test bifp=135) RED CELL DISTRIBUTION WIDTH 27.7 % 11.6-14.4 (BEAKER) (test ushj=541) PLATELET COUNT (BEAKER) (test 229 K/CU MM 150-450 rpkd=010) MEAN PLATELET VOLUME (BEAKER) fL 9.4-12.4 Unable to report due to (test yasl=579) abnormal Platelet population distribution. NUCLEATED RED BLOOD CELLS 1 /100 WBC 0-0 (BEAKER) (test ixly=810) NEUTROPHILS RELATIVE PERCENT 68 % (BEAKER) (test uwld=103) LYMPHOCYTES RELATIVE PERCENT 16 % (BEAKER) (test xpvj=068) MONOCYTES RELATIVE PERCENT 11 % (BEAKER) (test xgwl=176) EOSINOPHILS RELATIVE PERCENT 3 % (BEAKER) (test rsxl=753) BASOPHILS RELATIVE PERCENT 1 % (BEAKER) (test qtwr=886) NEUTROPHILS ABSOLUTE COUNT 2.65 K/ L 1.78-5.38 (BEAKER) (test rpqw=240) LYMPHOCYTES ABSOLUTE COUNT 0.63 K/ L 1.32-3.57 (BEAKER) (test czka=778) MONOCYTES ABSOLUTE COUNT 0.43 K/ L 0.30-0.82 (BEAKER) (test vrhv=408) EOSINOPHILS ABSOLUTE COUNT 0.12 K/ L 0.04-0.54 (BEAKER) (test yzll=296) BASOPHILS ABSOLUTE COUNT 0.03 K/ L 0.01-0.08 (BEAKER) (test nuom=033) IMMATURE GRANULOCYTES-RELATIVE 1 % 0-1 PERCENT (BEAKER) (test qefx=4460)
[2019-06-22] MEDS ORDERED: PANTOPRAZOLE 40 MG INJ ONE (19:50)
[2019-06-22] MEDS ORDERED: FOLIC ACID 5 MG/ML VIAL ONE (19:51)
[2019-06-22] MEDS ORDERED: NA CHLORIDE 0.9% 50 ML IV ONE (19:51)
--- NOTE | 2019-06-22 19:52 | ER ---
Nurse's Notes [facility] Name: Rhett Bourgeois Age: 53 yrs Sex: Male : 1965 Arrival Date: 06/22/2019 Time: 18:08 Bed 6 Private MD: Diagnosis: Anemia, unspecified;Weakness Presentation: 06/22 18:41 Presenting complaint: Patient states: has hx of genetic disorder and needs blood iw transfusions regularly, had labs drawn today hgb=[address] was [address] Morales to come to ER, pt is normally a direct admit but his regular PCP , Dr. Santizo, is out of town. Transition of care: patient was not received from another setting of care. Onset of symptoms was June 22, 2019. Risk Assessment: Do you want to hurt yourself or someone else? Patient reports no desire to harm self or others. Initial Sepsis Screen: Does the patient meet any 2 criteria? No. Patient's initial sepsis screen is negative. Does the patient have a suspected source of infection? No. Patient's initial sepsis screen is negative. Care prior to arrival: None. 18:41 Method Of Arrival: Ambulatory iw 18:41 Acuity: HUANG 3 iw Historical: - Allergies: 18:43 No Known Allergies; iw - Home Meds: 18:43 None [Active]; iw - PMHx: 18:43 chronic nose bleeds; iw - PSHx: 18:43 None; iw - Immunization history:: Adult Immunizations not up to date. - Social history:: Smoking status: Smoking status: Patient/guardian denies using tobacco. - Ebola Screening: : Patient negative for fever greater than or equal to 101.5 degrees Fahrenheit, and additional compatible Ebola Virus Disease symptoms Patient denies exposure to infectious person Patient denies travel to an Ebola-affected area in the 21 days before illness onset No symptoms or risks identified at this time. - Family history:: not pertinent. Screenin:17 Abuse screen: Denies threats or abuse. Denies injuries from another. Nutritional lp1 screening: No deficits noted. Tuberculosis screening: No symptoms or risk factors identified. Fall Risk None identified. Assessment: 20:10 Reassessment: Dr. Espitia at bedside to discuss plan of care with patient. lp1 20:17 General: Appears in no apparent distress. Behavior is calm, cooperative, appropriate lp1 for age. Pain: Denies pain. Neuro: Level of Consciousness is awake, alert, obeys commands, Oriented to person, place, time, situation. Cardiovascular: Patient's skin is warm and dry. Respiratory: Respiratory effort is even, unlabored. GI: No signs and/or symptoms were reported involving the gastrointestinal system. : No signs and/or symptoms were reported regarding the genitourinary system. EENT: No signs and/or symptoms were reported regarding the EENT system. Derm: Skin is pink, warm \T\ dry. Musculoskeletal: No deficits noted. Vital Signs: 18:43 BP 112 / 56; Pulse 74; Resp 16; Pulse Ox 97% on R/A; Weight 68.04 kg; Height 5 ft. 4 iw in. (162.56 cm); Pain 0/10; 20:36 BP 117 / 68; Pulse 72; Resp 18; Temp 98.3(TE); Pulse Ox 100% on R/A; lp1 18:43 Body Mass Index 25.75 (68.04 kg, 162.56 cm) iw ED Course: 18:08 Patient arrived in ED. mr 18:42 Triage completed. iw 18:43 Arm band placed on. iw 19:16 Melchor Mane MD is Attending Physician. matt 19:47 Sia Roy RN is Primary Nurse. lp1 19:50 Darrell Espitia MD is Hospitalizing Provider. matt 20:00 Patient has correct armband on for positive identification. Placed in gown. Cardiac lp1 monitor on. Pulse ox on. NIBP on. 20:00 Missed attempt(s): 20 gauge in left antecubital area. Inserted saline lock: 20 gauge in lp1 left antecubital area, using aseptic technique. Blood collected. 20:00 Initial lab(s) drawn, by me, sent to lab. T\T\S collected, blood band applied to patient. lp1 20:18 No provider procedures requiring assistance completed. Patient admitted, IV remains in lp1 place. Administered Medications: 20:11 Drug: ProTONIX 40 mg Route: IVP; Site: left antecubital; lp1 20:33 Follow up: Response: No adverse reaction lp1 20:12 Drug: foLIC Acid 1 mg Route: IVPB; Site: left antecubital; lp1 20:33 Follow up: IV Status: Completed infusion; IV Intake: 50ml lp1 Intake: 20:33 IV: 50ml; Total: 50ml. lp1 Outcome: 19:51 Decision to Hospitalize by Provider. matt 20:18 Condition: stable lp1 20:18 Instructed on the need for admit. 20:43 Admitted to Tele accompanied by tech, room 416, with chart, Report called to KEMAR Bernard lp1 21:01 Patient left the ED. lp1 Signatures: Melchor Mane MD MD cha Rivera, Mary mr Williams, Irene, RN RN Sia Roy RN RN lp1
--- NOTE | 2019-06-22 19:53 | EDPHYS ---
Physician Documentation [facility] Name: Rhett Bourgeois Age: 53 yrs Sex: Male : 1965 Arrival Date: 06/22/2019 Time: 18:08 Bed 6 Private MD: ED Physician Melchor Mane HPI: 06/22 19:46 This 53 yrs old Male presents to ER via Ambulatory with complaints of Abnormal matt Lab Results. 19:46 hx of multiple tranfusions. Onset: The symptoms/episode began/occurred 1 week(s) ago. matt Severity of symptoms: At their worst the symptoms were moderate in the emergency department the symptoms are unchanged. The patient has experienced similar episodes in the past, multiple times. Historical: - Allergies: 18:43 No Known Allergies; iw - Home Meds: 18:43 None [Active]; iw - PMHx: 18:43 chronic nose bleeds; iw - PSHx: 18:43 None; iw - Immunization history:: Adult Immunizations not up to date. - Social history:: Smoking status: Smoking status: Patient/guardian denies using tobacco. - Ebola Screening: : Patient negative for fever greater than or equal to 101.5 degrees Fahrenheit, and additional compatible Ebola Virus Disease symptoms Patient denies exposure to infectious person Patient denies travel to an Ebola-affected area in the 21 days before illness onset No symptoms or risks identified at this time. - Family history:: not pertinent. ROS: 19:46 Constitutional: Negative for fever, chills, and weight loss, Eyes: Negative for injury, matt pain, redness, and discharge, ENT: Negative for injury, pain, and discharge, Neck: Negative for injury, pain, and swelling, Cardiovascular: Negative for chest pain, palpitations, and edema, Respiratory: Negative for shortness of breath, cough, wheezing, and pleuritic chest pain, Abdomen/GI: Negative for abdominal pain, nausea, vomiting, diarrhea, and constipation, Back: Negative for injury and pain, : Negative for injury, bleeding, discharge, and swelling, MS/Extremity: Negative for injury and deformity, Skin: Negative for injury, rash, and discoloration, Psych: Negative for depression, anxiety, suicide ideation, homicidal ideation, and hallucinations, Allergy/Immunology: Negative for hives, rash, and allergies, Endocrine: Negative for neck swelling, polydipsia, polyuria, polyphagia, and marked weight changes, Hematologic/Lymphatic: Negative for swollen nodes, abnormal bleeding, and unusual bruising. 19:46 Neuro: Positive for weakness. Exam: 19:46 Constitutional: This is a well developed, well nourished patient who is awake, alert, matt and in no acute distress. Head/Face: Normocephalic, atraumatic. ENT: Nares patent. No nasal discharge, no septal abnormalities noted. Tympanic membranes are normal and external auditory canals are clear. Oropharynx with no redness, swelling, or masses, exudates, or evidence of obstruction, uvula midline. Mucous membranes moist. Neck: Trachea midline, no thyromegaly or masses palpated, and no cervical lymphadenopathy. Supple, full range of motion without nuchal rigidity, or vertebral point tenderness. No Meningismus. Chest/axilla: Normal chest wall appearance and motion. Nontender with no deformity. No lesions are appreciated. Cardiovascular: Regular rate and rhythm with a normal S1 and S2. No gallops, murmurs, or rubs. Normal PMI, no JVD. No pulse deficits. Respiratory: Lungs have equal breath sounds bilaterally, clear to auscultation and percussion. No rales, rhonchi or wheezes noted. No increased work of breathing, no retractions or nasal flaring. Abdomen/GI: Soft, non-tender, with normal bowel sounds. No distension or tympany. No guarding or rebound. No evidence of tenderness throughout. Back: No spinal tenderness. No costovertebral tenderness. Full range of motion. Male : Normal genitalia with no discharge or lesions. MS/ Extremity: Pulses equal, no cyanosis. Neurovascular intact. Full, normal range of motion. Neuro: Awake and alert, GCS 15, oriented to person, place, time, and situation. Cranial nerves II-XII grossly intact. Motor strength 5/5 in all extremities. Sensory grossly intact. Cerebellar exam normal. Normal gait. Psych: Awake, alert, with orientation to person, place and time. Behavior, mood, and affect are within normal limits. 19:46 Eyes: Conjunctiva: pale. 19:46 Neuro: Orientation: is normal, appropriate for stated age, no acute changes, Mentation: is normal, appropriate for stated age, no acute changes, Memory: is normal, appropriate for stated age, no acute changes, Cranial nerves: grossly normal, is grossly normal based on the patient's age, no acute changes, Cerebellar function: is grossly normal, is grossly normal based on the patient's age, no acute changes, Motor: is normal, is grossly normal based on the patient's age, no acute changes, moves all fours, Gait: is steady, appropriate for age. Vital Signs: 18:43 BP 112 / 56; Pulse 74; Resp 16; Pulse Ox 97% on R/A; Weight 68.04 kg; Height 5 ft. 4 iw in. (162.56 cm); Pain 0/10; 20:36 BP 117 / 68; Pulse 72; Resp 18; Temp 98.3(TE); Pulse Ox 100% on R/A; lp1 18:43 Body Mass Index 25.75 (68.04 kg, 162.56 cm) iw MDM: 19:16 Patient medically screened. [facility] 19:50 Data reviewed: vital signs, nurses notes, lab test result(s), EKG, radiologic studies, amtt plain films. 06/22 19:45 Order name: Basic Metabolic Panel [facility] 06/22 19:45 Order name: CBC with Diff [facility] 06/22 19:45 Order name: LFT's [facility] 06/22 19:45 Order name: Magnesium [facility] 06/22 19:45 Order name: NT PRO-BNP [facility] 06/22 19:45 Order name: PT-INR; Complete Time: 21:00 [facility] 06/22 19:45 Order name: Troponin (emerg Dept Use Only) [facility] 06/22 19:45 Order name: Type And Screen [facility] 06/22 19:45 Order name: Retic Count [facility] 06/22 19:45 Order name: B12 [facility] 06/22 19:45 Order name: Ferritin [facility] 06/22 19:45 Order name: TIBC [facility] 06/22 20:02 Order name: CBC with Automated Diff EDMS 06/22 19:45 Order name: XRAY Chest (1 view) [facility] 06/22 19:45 Order name: EKG; Complete Time: 19:46 [facility] 06/22 20:02 Order name: CONS Pharmacy Consult EDMD 06/22 20:02 Order name: CBC with Automated Diff ED[facility] 06/22 20:02 Order name: Comprehensive Metabolic Panel ED[facility] 06/22 20:02 Order name: Comprehensive Metabolic Panel [facility] 06/22 20:02 Order name: Protime (+INR) [facility] 06/22 20:02 Order name: Protime (+INR) ED[facility] 06/22 20:02 Order name: PTT, Activated Partial Thromb EDMD 06/22 20:02 Order name: PTT, Activated Partial Thromb ED[facility] 06/22 20:03 Order name: BB Add On ED[facility] 06/22 20:25 Order name: Packed RBC Leukored EDMD 06/22 20:59 Order name: RAD; Complete Time: 21:00 EDMD 06/22 21:00 Order name: CBC Smear Scan EDMD 06/22 19:45 Order name: Cardiac monitoring; Complete Time: 20:12 [facility] 06/22 19:45 Order name: EKG - Nurse/Tech; Complete Time: 20:12 [facility] 06/22 19:45 Order name: IV Saline Lock; Complete Time: 20:12 [facility] 06/22 19:45 Order name: Labs collected and sent; Complete Time: 20:12 [facility] 06/22 19:45 Order name: O2 Per Protocol; Complete Time: 20:12 [facility] 06/22 19:45 Order name: O2 Sat Monitoring; Complete Time: 20:12 [facility] 06/22 20:02 Order name: Regular EDMS Administered Medications: 20:11 Drug: ProTONIX 40 mg Route: IVP; Site: left antecubital; lp1 20:33 Follow up: Response: No adverse reaction lp1 20:12 Drug: foLIC Acid 1 mg Route: IVPB; Site: left antecubital; lp1 20:33 Follow up: IV Status: Completed infusion; IV Intake: 50ml lp1 Disposition: 06/22/19 19:51 Hospitalization ordered by Darrell Espitia for Observation. Preliminary diagnosis are Anemia, unspecified, Weakness. - Bed requested for Telemetry/MedSurg (observation). - Status is Observation. lp1 - Condition is Fair. - Problem is new. - Symptoms have improved. UTI on Admission? No Signatures: Dispatcher [employer] Yuliya Rocha RN RN aa1 Melchor Mane MD MD cha Williams, Irene, RN RN iw Sia Roy RN RN lp1 Corrections: (The following items were deleted from the chart) 19:47 19:46 FERRITIN+C.LAB.BRZ ordered. EDMD EDMD 20:08 19:51 Hospitalization Ordered by Darrell Espitia MD for Observation. Preliminary aa1 diagnosis is Anemia, unspecified; Weakness. Bed requested for Telemetry/MedSurg (observation). Status is Observation. Condition is Fair. Problem is new. Symptoms have improved. UTI on Admission? No. matt 21:01 20:08 06/22/2019 19:51 Hospitalization Ordered by Darrell Espitia MD for Observation. lp1 Preliminary diagnosis is Anemia, unspecified; Weakness. Bed requested for Telemetry/MedSurg (observation). Status is Observation. Condition is Fair. Problem is new. Symptoms have improved. UTI on Admission? No. aa1
[2019-06-22] MEDS ORDERED: MORPHINE 2 MG/ML SYR IV PRN (19:57)
[2019-06-22] MEDS ORDERED: ONDANSETRON 4 MG/2 ML VIAL IV PRN (19:57)
[2019-06-22] MEDS ORDERED: ACETAMINOPHEN 500 MG TAB PO PRN (19:57)
[2019-06-22] MEDS ORDERED: NA CHLORIDE 0.9% 1,000 ML IV SCH (20:00)
[2019-06-22 20:21] LABS: Absolute Lymphocytes (CBC) 0.7 K/uL (0.7-4.9); Basophils % 0.9 % (0-1.3); Lymphocytes % 20.6 % (15.3-44.8); MPV 9.1 fL (7.6-11.3); RBC Red Blood Cell Count 2.86 M/uL (4.33-5.43)
[2019-06-22 20:22] LABS: Protime INR 1.17
--- NOTE | 2019-06-22 20:57 | RAD REPORT ---
EXAM DESCRIPTION: [facility] Single View06/22/2019 8:32 pm CLINICAL HISTORY: cough COMPARISON: May 2019 FINDINGS: The lungs appear clear of acute infiltrate. The heart is normal size IMPRESSION: No acute abnormalities displayed
[2019-06-22 21:00] LABS: Anisocytosis 3+; Blood Morphology Comment NOTED (NOT SEEN); Hypochromasia 3+; Platelet Estimate ADEQ; Polychromasia 1+; Urine White Blood Cell Casts OK
[2019-06-22 21:08] LABS: ALT/SGPT 25 U/L (12-78); AST/SGOT 12 U/L (15-37); Albumin 3.9 g/dL (3.4-5.0); Alkaline Phosphatase 75 U/L (45-117); BUN Blood Urea Nitrogen 16 mg/dL (7-18); Bicarbonate 24 mmol/L (21-32); Bilirubin Direct 0.2 mg/dL (0-0.2); Bilirubin Total 0.7 mg/dL (0.2-1.0); Glucose Level 96 mg/dL (74-106); Magnesium 2.2 mg/dL (1.8-2.4); NT PRO-BNP 118 pg/mL (<125); Potassium 3.7 mmol/L (3.5-5.1); Protein, Total 6.9 g/dL (6.4-8.2); Sodium Level 139 mmol/L (136-145); Troponin (Emerg Dept Use Only) < 0.02 ng/mL (0.0-0.045)
[2019-06-22] MEDS ORDERED: ACETAMINOPHEN 325 MG TABLET PO ONE (22:24)
[2019-06-22 22:32] VITALS: BMI 27.5
[2019-06-22] MEDS ORDERED: DIPHENHYDRAMINE 50 MG/ML VIAL IV ONE (23:05)
[2019-06-22] MEDS ORDERED: NA CHLORIDE 0.9% 250 ML ONE ×2 (23:07→23:35)
[2019-06-23 05:57] LABS: Ferritin 0.8 ng/mL (26-388)
[2019-06-23 06:01] LABS: Transferrin ND mg/dL (200-360)
--- NOTE | 2019-06-23 07:42 | P.HP ---
Certification for Inpatient Patient admitted to: Observation With expected LOS: <2 Midnights Patient will require the following post-hospital care: None Practitioner: I am a practitioner with admitting privileges, knowledge of patient current condition, hospital course, and medical plan of care. Services: Services provided to patient in accordance with Admission requirements found in Title 42 Section 412.3 of the Code of Federal Regulations Patient History Date of Service: 06/22/19 Reason for admission: ANEMIA History of Present Illness: Patient is a 53-year-old gentleman who came to the hospital with severe anemia. His hemoglobin was 4.0. 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 Patient requires frequent transfusions. Patient has been to [place] for experimental treatment which she was supposed to undergo but this has been delayed for many months. He is setting up seeing a physician in [place] to get treatment. He was told he is a high likelihood of a cure. Hopefully, he will get this set up over the next month or 2. In the meantime will get his blood transfuse to make sure his hemoglobin is greater than 9 per his PCPs recommendation. Patient will be admitted for observation. Once this transfusion is completed he should be stable for discharge home. Allergies No Known Allergies Allergy (Verified 05/03/19 21:48) Home Medications: NK [No Home Meds] 10/11/18 - Past Medical/Surgical History Has patient received pneumonia vaccine in the past: No Diabetic: No -: Osler-Nunez Rendu Syndrome (hht) -: egd x2 -: colonoscopy - Family History Father Medical History: Heart disease, Cancer Mother Medical History: Hypertension - Social History Smoking Status: Never smoker Alcohol use: No CD- Drugs: No Caffeine use: Yes Place of Residence: Home Review of Systems 10-point ROS is otherwise unremarkable Physical Examination - Vital Signs Temperature: 98.4 F Blood Pressure: 109/59 Pulse: 69 Respirations: 20 Pulse Ox (%): 98 - Physical Exam General: Alert, In no apparent distress, Oriented x3 HEENT: Atraumatic, PERRLA, Mucous membr. moist/pink, EOMI, Sclerae nonicteric Neck: Supple, 2+ carotid pulse no bruit, No LAD, Without JVD or thyroid abnormality Respiratory: Clear to auscultation bilaterally, Normal air movement Cardiovascular: Regular rate/rhythm, Normal S1 S2, No murmurs Gastrointestinal: Normal bowel sounds, Soft and benign, Non-distended, No tenderness Musculoskeletal: No clubbing, No swelling, No tenderness Integumentary: No rashes Neurological: Normal gait, Normal speech, Normal strength at 5/5 x4 extr, Normal tone, Sensation intact, Cranial nerves 3-12 intact, Normal affect Lymphatics: No axilla or inguinal lymphadenopathy Assessment & Plan - Problems (Diagnosis) (1) HHT (hereditary hemorrhagic telangiectasia) Current Visit: No Status: Acute (2) Severe anemia Onset Date: 08/21/18 Current Visit: No Status: Chronic - Plan Plan: 1. Transfuse 4 units of packed red blood cells 2. Serial hemoglobin checks 3. Monitor hemodynamics closely 4. Outpatient follow with rail project engineer in [place] 5. Follow with PCP, Dr. Santizo in 1 week 6. GI and DVT prophylaxis Discharge Plan: Home Plan to discharge in: 24 Hours - Advance Directives Does patient have a Living Will: No Does patient have a Durable POA for Healthcare: No - Code Status/Comfort Care Code Status Assessed: Yes Code Status: Full Code Critical Care: No Time Spent Managing PTS Care (In Minutes): 45
[2019-06-23 07:43] LABS: Absolute Lymphocytes (CBC) 0.4 K/uL (0.7-4.9); Basophils % 1.4 % (0-1.3); Lymphocytes % 18.1 % (15.3-44.8); MPV 9.6 fL (7.6-11.3); RBC Red Blood Cell Count 3.16 M/uL (4.33-5.43)
[2019-06-23 07:44] LABS: Hematocrit 20.1 % (39.6-49.0)
[2019-06-23 07:46] LABS: Protime INR 1.13
[2019-06-23 08:05] LABS: ALT/SGPT 22 U/L (12-78); AST/SGOT 8 U/L (15-37); Albumin 3.5 g/dL (3.4-5.0); Alkaline Phosphatase 58 U/L (45-117); BUN Blood Urea Nitrogen 12 mg/dL (7-18); Bicarbonate 24 mmol/L (21-32); Bilirubin Total 1.2 mg/dL (0.2-1.0); Glucose Level 93 mg/dL (74-106); Protein, Total 6.1 g/dL (6.4-8.2); Sodium Level 142 mmol/L (136-145)
[2019-06-23] MEDS ORDERED: FUROSEMIDE 20 MG/ 2ML VIAL IV SCH (09:00)
[2019-06-23] MEDS ORDERED: NA CHLORIDE 0.9% 250 ML ONE ×2 (10:11→14:42)
--- NOTE | 2019-06-23 15:32 | EKG ---
Test Date: 2019-06-22 Test Time: 20:04:25 Disc Pad Grinder: GABRIELE MEASUREMENT RESULTS: Intervals: Rate: 81 ID: [id number] QRSD: 90 QT: 388 QTc: 450 Rosalie: P: 36 ID: [id number] QRS: 36 T: 39 INTERPRETIVE STATEMENTS: Normal sinus rhythm Normal ECG Compared to ECG 05/04/2019 07:12:31 Sinus bradycardia no longer present Sinus arrhythmia no longer present Electronically Signed On 06-23-19 15:30:53 CAREER LAW CLERK by Santosh Quiroz
[2019-06-23 18:43] LABS: Hematocrit 29.6 % (39.6-49.0)
[2019-06-23 19:46] VITALS: BP 148/83; TEMP 97.9
[2019-06-23 19:48] VITALS: O2SAT 100
== END 2019-06-23 20:00 | disposition home or self-care (01) ==
LOC: ER 18:07 → ERHOLD 19:58 → 4TH 20:43
PROVIDERS: ADMIT Hospitalist; ATTEND Hospitalist
DX: I78.0 Hereditary hemorrhagic telangiectasia (principal); D64.9 Anemia, unspecified
CPT/HCPCS: 96365; 36430; 93005; 85025 ×2; 80048; 36415; 86900; 83735; 86850; 85610 ×2; 85044; 86901; 80076; 85730; 85018; 85014; 84484; 82728; 82607; 83540; 80053; 83880; 71045; 96375; 99285; J1940; J1200; C9113; P9016 ×4; J7030 ×5; G0378 ×3; 84466

== ENCOUNTER 2019-08-14 17:48 | Observation (INO) | payer BC ==
--- OUTSIDE RECORDS SUMMARY | 2019-08-14 17:52 | XMS REPORT ---
:1965 [facility] Address [address] [place] [address] Care Team Providers Name Role Phone CHRIS [...] Reference Range Comments HEMOGLOBIN A1C (BEAKER) (test rqnn=275) 4.3 % 4.3-6.1 HEMOGLOBIN AND [id number] 11:46:00 Test Item Value Reference Range Comments HEMOGLOBIN (BEAKER) (test iyeq=490) 7.8 GM/DL 13.7-17.5 HEMATOCRIT (BEAKER) (test aagh=832) 28.4 % 40.1-51.0 CBC W/PLT COUNT & AUTO [id number] 10:58:00 Test Item Value Reference Range Comments WHITE BLOOD CELL COUNT 4.5 K/ L 3.5-10.5 (BEAKER) (test hmaa=141) RED BLOOD CELL COUNT (BEAKER) 3.56 M/ L 4.63-6.08 (test scos=953) HEMOGLOBIN (BEAKER) (test 6.9 GM/DL 13.7-17.5 qdfg=847) HEMATOCRIT (BEAKER) (test 25.0 % 40.1-51.0 Patient transfused yfma=394) MEAN CORPUSCULAR VOLUME 70.2 fL 79.0-92.2 (BEAKER) (test lpch=971) MEAN CORPUSCULAR HEMOGLOBIN 19.4 pg 25.7-32.2 (BEAKER) (test kfnb=781) MEAN CORPUSCULAR HEMOGLOBIN 27.6 GM/DL 32.3-36.5 CONC (BEAKER) (test drly=574) RED CELL DISTRIBUTION WIDTH 27.0 % 11.6-14.4 (BEAKER) (test ywut=327) PLATELET COUNT (BEAKER) (test 177 K/CU MM 150-450 kakq=070) MEAN PLATELET VOLUME (BEAKER) fL 9.4-12.4 Unable to report due to (test rlfb=442) abnormal Platelet population distribution. NUCLEATED RED BLOOD CELLS 1 /100 WBC 0-0 (BEAKER) (test lwkn=249) (CELLAVISION MANUAL DIFF)2018-03-26 10:58:00 Test Item Value Reference Range Comments NEUTROPHILS - REL (CELLAVISION)(BEAKER) (test 79 % cdit=8433) LYMPHOCYTES - REL (CELLAVISION)(BEAKER) (test 8 % qkxb=4462) MONOCYTES - REL (CELLAVISION)(BEAKER) (test 9 % egft=9504) EOSINOPHILS - REL (CELLAVISION)(BEAKER) (test 2 % plon=3884) BASOPHILS - REL (CELLAVISION)(BEAKER) (test 1 % nmdf=6044) NEUTROPHILS - ABS (CELLAVISION)(BEAKER) (test 3.56 K/ul 1.78-5.38 lfok=8958) LYMPHOCYTES - ABS (CELLAVISION)(BEAKER) (test 0.36 K/ul 1.32-3.57 ewon=4916) MONOCYTES - ABS (CELLAVISION)(BEAKER) (test 0.41 K/uL 0.30-0.82 axno=8721) EOSINOPHILS - ABS (CELLAVISION)(BEAKER) (test 0.09 K/uL 0.04-0.54 blhm=3975) BASOPHILS - ABS (CELLAVISION)(BEAKER) (test 0.05 K/uL 0.01-0.08 iiuq=0322) TOTAL COUNTED (BEAKER) (test xvtk=8436) 100 MANUAL NRBC PER 100 CELLS (BEAKER) (test 1 /100 WBC 0-0 lofk=7658) WBC MORPHOLOGY (BEAKER) (test qxao=152) Normal PLT MORPHOLOGY (BEAKER) (test mjyn=204) Normal HYPOCHROMIA (BEAKER) (test buek=499) 2+ moderate ANISOCYTOSIS (BEAKER) (test bbpi=607) 1+ few POIKILOCYTES (BEAKER) (test zaoc=822) 2+ moderate OVALOCYTES (BEAKER) (test lnun=876) 2+ moderate TSH/FREE T4 IF [id number] 02:43:00 Test Item Value Reference Range Comments THYROID STIMULATING HORMONE (BEAKER) (test 2.62 uIU/mL 0.35-4.94 xdex=814) [id number] 02:28:00 Test Item Value Reference Range Comments PHOSPHORUS (BEAKER) (test czjz=915) 3.9 mg/dL 2.3-4.7 [id number] 02:28:00 Test Item Value Reference Range Comments MAGNESIUM (BEAKER) (test iiyh=312) 2.2 mg/dL 1.6-2.6 BASIC METABOLIC [id number] 02:28:00 Test Item Value Reference Range Comments SODIUM (BEAKER) (test 137 meq/L 136-145 doqm=252) POTASSIUM (BEAKER) (test 3.8 meq/L 3.5-5.1 aukw=558) CHLORIDE (BEAKER) (test 110 meq/L 98-107 fvqo=664) CO2 (BEAKER) (test 22 meq/L 22-29 qqxz=270) BLOOD UREA NITROGEN 10 mg/dL 7-21 (BEAKER) (test koup=723) CREATININE (BEAKER) (test 0.69 mg/dL 0.57-1.25 fufd=091) GLUCOSE RANDOM (BEAKER) 99 mg/dL 70-105 (test duqa=558) CALCIUM (BEAKER) (test 8.2 mg/dL 8.4-10.2 nzsa=848) EGFR (BEAKER) (test 121 mL/min/1.73 sq m ESTIMATED GFR IS NOT ncvb=4401) ACCURATE CREATININE CLEARANCE IN PREDICTING GLOMERULAR FILTRATION RATE. ESTIMATED GFR IS NOT APPLICABLE FOR DIALYSIS PATIENTS. LIPID [id number] 02:28:00 Test Item Value Reference Range Comments TRIGLYCERIDES (BEAKER) (test nune=885) 65 mg/dL CHOLESTEROL (BEAKER) (test povz=340) 89 mg/dL HDL CHOLESTEROL (BEAKER) (test xzxi=480) 36 mg/dL LDL CHOLESTEROL CALCULATED (BEAKER) (test yqxt=953) 40 mg/dL Triglyceride Reference Range: Low Risk <150 Borderline 150- 199 High Risk 200-499 Very High Risk >=500Cholesterol Reference Range: Low Risk <200 Borderline 200-239 High Risk > 240HDL Cholesterol Reference Range: Low Risk >=60 High Risk <40LDL Cholesterol Reference Range: Optimal <100 Near Optimal 100-129 Borderline 130-159 High 160-189 Very High >=190CALCIUM, [id number] 01:31:00 Test Item Value Reference Range Comments CALCIUM IONIZED (BEAKER) (test ulgn=015) 1.02 mmol/L 1.12-1.27 PH, BLOOD (BEAKER) (test wlcy=5830) 7.47 CBC W/PLT COUNT & AUTO [id number] 23:41:00 Test Item Value Reference Range Comments WHITE BLOOD CELL COUNT 3.9 K/ L 3.5-10.5 (BEAKER) (test agnu=800) RED BLOOD CELL COUNT (BEAKER) 3.34 M/ L 4.63-6.08 (test gwcd=372) HEMOGLOBIN (BEAKER) (test 6.1 GM/DL 13.7-17.5 xfns=787) HEMATOCRIT (BEAKER) (test 23.1 % 40.1-51.0 mjsv=397) MEAN CORPUSCULAR VOLUME 69.2 fL 79.0-92.2 (BEAKER) (test qfxz=179) MEAN CORPUSCULAR HEMOGLOBIN 18.3 pg 25.7-32.2 (BEAKER) (test rnxa=422) MEAN CORPUSCULAR HEMOGLOBIN 26.4 GM/DL 32.3-36.5 CONC (BEAKER) (test qyzc=823) RED CELL DISTRIBUTION WIDTH 27.7 % 11.6-14.4 (BEAKER) (test lrlq=309) PLATELET COUNT (BEAKER) (test 229 K/CU MM 150-450 vhld=130) MEAN PLATELET VOLUME (BEAKER) fL 9.4-12.4 Unable to report due to (test fkyt=869) abnormal Platelet population distribution. NUCLEATED RED BLOOD CELLS 1 /100 WBC 0-0 (BEAKER) (test bvzi=422) NEUTROPHILS RELATIVE PERCENT 68 % (BEAKER) (test kkkm=549) LYMPHOCYTES RELATIVE PERCENT 16 % (BEAKER) (test qnow=748) MONOCYTES RELATIVE PERCENT 11 % (BEAKER) (test sucs=803) EOSINOPHILS RELATIVE PERCENT 3 % (BEAKER) (test lmgi=512) BASOPHILS RELATIVE PERCENT 1 % (BEAKER) (test adjg=812) NEUTROPHILS ABSOLUTE COUNT 2.65 K/ L 1.78-5.38 (BEAKER) (test makb=814) LYMPHOCYTES ABSOLUTE COUNT 0.63 K/ L 1.32-3.57 (BEAKER) (test nyzd=179) MONOCYTES ABSOLUTE COUNT 0.43 K/ L 0.30-0.82 (BEAKER) (test fqxe=283) EOSINOPHILS ABSOLUTE COUNT 0.12 K/ L 0.04-0.54 (BEAKER) (test gcyd=919) BASOPHILS ABSOLUTE COUNT 0.03 K/ L 0.01-0.08 (BEAKER) (test zdcf=507) IMMATURE GRANULOCYTES-RELATIVE 1 % 0-1 PERCENT (BEAKER) (test apcs=1438)
[2019-08-14 18:22] VITALS: BMI 26.7
[2019-08-14 18:48] LABS: Absolute Lymphocytes (CBC) 0.6 K/uL (0.7-4.9); Basophils % 0.9 % (0-1.3); Lymphocytes % 19.7 % (15.3-44.8); MPV 8.7 fL (7.6-11.3); RBC Red Blood Cell Count 2.81 M/uL (4.33-5.43)
[2019-08-14 18:52] LABS: Protime INR 1.16
[2019-08-14 19:01] LABS: BUN Blood Urea Nitrogen 11 mg/dL (7-18); Bicarbonate 25 mmol/L (21-32); Glucose Level 82 mg/dL (74-106); Magnesium 2.2 mg/dL (1.8-2.4); Potassium 3.8 mmol/L (3.5-5.1); Sodium Level 140 mmol/L (136-145)
[2019-08-14 19:12] LABS: Hematocrit 15.9 % (39.6-49.0)
[2019-08-14 19:13] LABS: Anisocytosis 3+; Blood Morphology Comment NOTED (NOT SEEN); Elliptocytes 3+; Hypochromasia 3+; Macrocytosis 1+; Platelet Estimate ADEQ; Poikilocytosis 3+; Teardrop Cell 3+; Urine White Blood Cell Casts OK
[2019-08-14 19:27] LABS: Albumin 3.6 g/dL (3.4-5.0); Bilirubin Direct 0.3 mg/dL (0-0.2); Bilirubin Total 0.7 mg/dL (0.2-1.0); Folic Acid, (Folate) 17.5 ng/mL (3.1-17.5); Protein, Total 6.5 g/dL (6.4-8.2)
[2019-08-14] MEDS ORDERED: POLYETHYL GLY 3350 17 GM/DOSE PO PRN (20:18)
[2019-08-14] MEDS ORDERED: ONDANSETRON 4 MG/2 ML VIAL IV PRN (20:18)
[2019-08-14] MEDS ORDERED: ACETAMINOPHEN 325 MG TABLET PO PRN (20:18)
[2019-08-14] MEDS ORDERED: DIPHENHYDRAMINE 25 MG TAB/CAP PO PRN (20:18)
[2019-08-14] MEDS ORDERED: LOPERAMIDE HCL 2 MG CAPSULE PO PRN (20:18)
[2019-08-14] MEDS ORDERED: ONDANSETRON 4 MG (ODT) TAB PO PRN (20:22)
[2019-08-14] MEDS: NACHLORIDE 0.45% 1,000 ML IV SCH (21:00)
[2019-08-14] MEDS ORDERED: NA CHLORIDE 0.9% 250 ML ONE (21:41)
[2019-08-15 08:47] VITALS: O2SAT 99
[2019-08-15 10:41] LABS: Absolute Lymphocytes (CBC) 0.6 K/uL (0.7-4.9); Basophils % 0.4 % (0-1.3); Hematocrit 23.2 % (39.6-49.0); Lymphocytes % 17.3 % (15.3-44.8); MPV 8.6 fL (7.6-11.3); RBC Red Blood Cell Count 3.59 M/uL (4.33-5.43)
[2019-08-15 10:52] LABS: BUN Blood Urea Nitrogen 9 mg/dL (7-18); Bicarbonate 25 mmol/L (21-32); Glucose Level 97 mg/dL (74-106); Magnesium 2.3 mg/dL (1.8-2.4); Potassium 4.2 mmol/L (3.5-5.1); Sodium Level 142 mmol/L (136-145)
[2019-08-15 11:03] LABS: Anisocytosis 2+; Blood Morphology Comment NOTED (NOT SEEN); Hypochromasia 2+; Ovalocytes 1+; Platelet Estimate ADEQ; Poikilocytosis 1+; Teardrop Cell 1+
[2019-08-15] MEDS ORDERED: NA CHLORIDE 0.9% 250 ML ONE (11:45)
[2019-08-15] MEDS: NACHLORIDE 0.45% 1,000 ML IV SCH (16:46)
[2019-08-15 17:35] LABS: Hematocrit 26.2 % (39.6-49.0)
--- NOTE | 2019-08-15 21:56 | P.DS ---
Admission Date: 08/14/19 Discharge Date: 08/15/19 Disposition: ROUTINE DISCHARGE Discharge Condition: FAIR Hospital Course: MR. BARKER HAS HHT SYNDROME. HE BLEEDS FROM NOSE REGULARLY. I HAD FOUND HIM A RESEARCH PROGRAM IN [place] WHO HE HAS VISITED. HE IS WAITING FOR DR. GIPSON IN [facility] TO HELP HIM INFUSE AN EXPERIMENTAL MEDICATION TO REDUCE NOSE BLEEDS IN COORDINATION WITH [facility]. HE HAD FOUR UNITS OF PACKED RBCS TODAY THAT BROUGHT HIS HG FROM 4.4 GM TO 8 GM. HE HAS CHRONIC ANEMIA SO WHEN HE DROPS BELOW 5 GM HE STARTS FEELING WEAK. Vital Signs/Physical Exam: Temp Pulse Resp BP Pulse Ox 99.6 F 69 18 141/71 H 100 08/15/19 16:00 08/15/19 16:00 08/15/19 16:00 08/15/19 16:00 08/15/19 16:00 General: Alert, In no apparent distress HEENT: Atraumatic, PERRLA, EOMI Neck: Supple, JVD not distended Respiratory: Clear to auscultation bilaterally, Normal air movement Cardiovascular: Regular rate/rhythm, Normal S1 S2 Gastrointestinal: Normal bowel sounds, No tenderness Musculoskeletal: No tenderness Integumentary: No rashes Neurological: Normal speech, Normal tone, Normal affect Lymphatics: No axilla or inguinal lymphadenopathy Laboratory Data at Discharge: WBC 3.4 K/uL (4.3-10.9) L 08/15/19 10:22 Hgb 8.1 g/dL (13.6-17.9) L 08/15/19 17:25 Hct 26.2 % (39.6-49.0) L 08/15/19 17:25 Plt Count 132 K/uL (152-406) L D 08/15/19 10:22 PT 13.6 SECONDS (9.5-12.5) H 08/14/19 18:30 INR 1.16 08/14/19 18:30 APTT 34.5 SECONDS (24.3-36.9) 08/14/19 18:30 Sodium 142 mmol/L (136-145) 08/15/19 10:22 Potassium 4.2 mmol/L (3.5-5.1) 08/15/19 10:22 BUN 9 mg/dL (7-18) 08/15/19 10:22 Creatinine 0.68 mg/dL (0.55-1.3) 08/15/19 10:22 Glucose 97 mg/dL (74-106) 08/15/19 10:22 Magnesium 2.3 mg/dL (1.8-2.4) 08/15/19 10:22 Total Bilirubin 0.7 mg/dL (0.2-1.0) 08/14/19 18:30 AST 13 U/L (15-37) L 08/14/19 18:30 ALT 25 U/L (12-78) 08/14/19 18:30 Alkaline Phosphatase 59 U/L (45-117) 08/14/19 18:30 Home Medications: NK [No Home Meds] 10/11/18
[2019-08-15 23:25] VITALS: BP 146/70; TEMP 98.4
== END 2019-08-15 20:15 | disposition home or self-care (01) ==
LOC: 2ND 17:48
PROVIDERS: ADMIT Internal Medicine; ATTEND Internal Medicine
DX: D64.9 Anemia, unspecified (principal); I78.0 Hereditary hemorrhagic telangiectasia
CPT/HCPCS: 85025 ×2; 80048 ×2; 36415 ×2; 86900; 83735 ×2; 86850; 85610; 86901; 80076; 85730; 85018; 85014; 82746; 82607; 83540; 86922 ×4; P9016 ×4; J7030 ×2; G0378 ×3